=== PATIENT | female | born 1960 | race Caucasian/White ===

== ENCOUNTER 2021-09-17 14:48 | Observation (INO) | payer BC, SELFPAY ==
[2021-09-17] VITALS (29 sets, daily range): BP systolic 118–152; BP diastolic 70–92; PULSE 79–95; RESP 16–18; TEMP 36.7–37.2; O2SAT 94–100; BMI 21.2; BMI 19.8
--- NOTE | 2021-09-17 14:52 | ECG_ITS ---
APPROVED REPORT Exam: Resting ECG HR:96 bpm ECG Measurements Heart Rate 96 AXES SC 146 P 75 QRSd 100 QRS 15 QT 442 T 71 QTc 558 Conclusion Sinus rhythm with premature atrial complexes Nonspecific T wave abnormality Prolonged QT Abnormal ECG Electronically signed by : Alfonso Fortune MD 09/18/2021 21:05:51
--- NOTE | 2021-09-17 14:58 | HMH.EDGENADL ---
ED Disposition Clinical Impression: Elevated troponin, Mass of right lung, Colonic mass, Hypokalemia, Liver masses, Adenopathy Anemia Qualifiers: Anemia type: unspecified type Qualified Code(s): D64.9 - Anemia, unspecified Chest pain Qualifiers: Chest pain type: precordial pain Qualified Code(s): R07.2 - Precordial pain Breast mass, right Qualifiers: Breast mass location: unspecified quadrant Qualified Code(s): N63.10 - Unspecified lump in the right breast, unspecified quadrant Disposition: Admitted As Inpatient Condition on Discharge: Serious Referrals: Andrew Augustine [Primary Care Provider] - - Critical Care Critical Care Time: No Attestation: On , the high probability of a clinically significant, sudden or life threatening deterioration of the following system(s) required my full and direct attention, intervention and personal management. The time I documented below is in addition to time spent performing reported procedures but includes the following listed in this critical care notation. Medical Decision Making - Jonathan Inquiry Pt receiving controlled substance: No Vital Signs: 09/17/21 15:01 Temperature 98.5 F Temperature Source Oral Pulse Rate [Left Radial] 95 H Respiratory Rate 16 Blood Pressure [Right Arm] 152/88 H Blood Pressure Mean [Right Arm] 109 02 Sat by Pulse Oximetry 100 Oxygen Delivery Method Room Air - Lab Data Lab Results 09/17/21 15:22: WBC 12.3 H, RBC 3.63 L, Hgb 7.5 L, Hct 26.4 L, MCV 72.6 L, MCH 20.6 L, MCHC 28.3 L, RDW 17.2, Plt Count 803 H, MPV 8.3, Neut % (Auto) 85.1 H, Lymph % (Auto) 9.7 L, Robertson % (Auto) 3.9, Eos % (Auto) 0.2, Baso % (Auto) 1.1, Neut # (Auto) 10.5 H, Lymph # (Auto) 1.2, Robertson # (Auto) 0.5, Eos # (Auto) 0.0, Baso # (Auto) 0.1, Total Counted 100, Neutrophils % (Manual) 92 H, Lymphocytes % (Manual) 7 L, Monocytes % (Manual) 1 L, Platelet Estimate Marked increase, Hypochromasia 3+, Anisocytosis 2+, Microcytosis 1+ 09/17/21 15:22: Troponin I 0.96 H 09/17/21 15:22: Lipase 132 09/17/21 15:22: Sodium 137, Potassium 2.9 L*, Chloride 101, Carbon Dioxide 29, Anion Gap 9.9, BUN 10, Creatinine 0.80, Estimated Creat Clear 51, Estimated GFR 73, Est GFR ( Amer) 88, Glucose 153 H, Calcium 9.1, Total Bilirubin 0.2, AST 37 H, ALT 17, Alkaline Phosphatase 138 H, Total Protein 6.9, Albumin 3.7, Globulin 3.2, Albumin/Globulin Ratio 1.2 09/17/21 15:28: Urine Color Yellow, Urine Appearance Clear, Urine pH 6.0, Ur Specific [place] 1.015, Urine Protein Negative, Urine Glucose (UA) Negative, Urine Ketones Negative, Urine Blood Negative, Urine Nitrate Negative, Urine Bilirubin Negative, Urine Urobilinogen 0.2, Ur Leukocyte Esterase Trace, Urine RBC 3-5, Urine WBC Occasional, Ur Squamous Epith Cells 3-5, Urine Bacteria None 09/17/21 16:10: Stool Occult Blood Negative 09/17/21 16:15: Crossmatch (AHG) See Detail Result diagrams: 09/17/21 15:22 09/17/21 15:22 Orders (Tests/Meds): ED MEDICATIONS Generic Name Dose Route Start Last Admin Trade Name Freq PRN Reason Stop Dose Admin Sodium Chloride 250 mls @ 25 mls/hr 09/17/21 16:15 Sod Chlor 0.9% 250ml Bag IV 09/18/21 16:14 .Q10H CORNELIUS Discontinued Medications Generic Name Dose Route Start Last Admin Trade Name Freq PRN Reason Stop Dose Admin Aspirin 324 mg 09/17/21 16:01 Aspirin 81mg Chewable Tablet PO 09/17/21 16:02 ONCE ONE Iopamidol 70 ml 09/17/21 16:05 09/17/21 16:06 Iopamidol-370 (76%);100ml Bottle IV 09/17/21 16:06 70 ml ONCE ONE Administration Potassium Chloride 60 meq 09/17/21 15:44 09/17/21 16:03 Potassium Chloride 20meq Tab PO 09/17/21 15:45 60 meq ONCE ONE Administration Sodium Chloride 50 ml 09/17/21 16:05 09/17/21 16:06 0.9 % Sodium Chloride 50 Ml Vial IV 09/17/21 16:06 50 ml ONCE ONE Administration Sodium Chloride 10 ml 09/17/21 16:05 09/17/21 16:06 Sodium Chloride 0.9% 10ml Syr (Rad Only) IV 09/17/21 16:06 10 ml ONCE ONE Administration
--- NOTE | 2021-09-17 15:10 | CT_ITS ---
PROCEDURE INFORMATION: Exam: CT Abdomen And Pelvis Without Contrast Exam date and time: 09/17/2021 3:10 PM Age: 61 years old Clinical indication: Abdominal pain; Flank; Right; Additional info: Right flank pain TECHNIQUE: Imaging protocol: Computed tomography of the abdomen and pelvis without contrast. Radiation optimization: All CT scans at this facility use at least one of these dose optimization techniques: automated exposure control; mA and/or kV adjustment per patient size (includes targeted exams where dose is matched to clinical indication); or iterative reconstruction. COMPARISON: CR XR CHEST 2V 09/17/2021 3:12 PM FINDINGS: Lungs: 4.7 mm pulmonary nodule in the right lower lobe. Bibasilar atelectasis Liver: Normal. No mass. Gallbladder and bile ducts: Normal. No calcified stones. No ductal dilation. Pancreas: Normal. No ductal dilation. Spleen: Normal. No splenomegaly. Adrenal glands: Normal. No mass. Kidneys and ureters: 6.9 millimeter distal RIGHT ureteral calculus causes moderate dilatation of the RIGHT ureter, and RIGHT collecting system.. There may be 2 adjacent renal calculi together measuring 9.6 mm. The smaller distal calculus measures 3.7 mm The RIGHT kidney is edematous and there is RIGHT perirenal stranding. Stomach and bowel: Bowel wall thickening in the right colon with possible mass in the right colon. Series 6, image 52. There are surrounding inflammatory changes rule out malignancy.. Appendix: No evidence of appendicitis. Intraperitoneal space: 4.5 x 4.1 cm mass seen on chest CT is not visualized in the lung prakash on the abdomen and pelvis. Recommend chest CT for further evaluation. Vasculature: Unremarkable. No abdominal aortic aneurysm. Lymph nodes: Unremarkable. No enlarged lymph nodes. Urinary bladder: Unremarkable as visualized. Reproductive: Unremarkable as visualized. Bones/joints: Unremarkable. No acute fracture. Soft tissues: Unremarkable. IMPRESSION: 1. 4.5 x 4.1 cm mass seen on chest CT is not visualized in the lung prakash on the abdomen and pelvis. Recommend chest CT for further evaluation. 2. 4.7 mm pulmonary nodule in the right lower lobe.For patients at low risk (minimal or absent history of smoking and of other known risk factors), no routine follow-up is indicated. For patients at high risk (history of smoking or of other known risk factors), consider optional CT Chest at 12 months. (Reference: [place]) References: yasmine Tinajero al. Guidelines for Management of Incidental Pulmonary Nodules Detected on CT Images: From the Fleischner Society 2017. Radiology. 2017;284(1):228-243. 3. Bowel wall thickening in the right colon with possible mass in the right colon. Series 6, image 52. There are surrounding inflammatory changes rule out malignancy.. 4. 6.9 millimeter distal RIGHT ureteral calculus causes moderate dilatation of the RIGHT ureter, and RIGHT collecting system.. There may be 2 adjacent renal calculi together measuring 9.6 mm. The smaller distal calculus measures 3.7 mm The RIGHT kidney is edematous and there is RIGHT perirenal stranding.
--- NOTE | 2021-09-17 15:10 | XR_ITS ---
PROCEDURE INFORMATION: Exam: XR Chest Exam date and time: 09/17/2021 3:10 PM Age: 61 years old Clinical indication: Other: Chest pain with panic attack TECHNIQUE: Imaging protocol: XR of the chest. Views: 2 views. COMPARISON: No relevant prior studies available. FINDINGS: Lungs: 4.6 x 4.1 cm mass in the right lower lobe worrisome for malignancy. Differential includes round pneumonia Recommend chest CT for further evaluation. Pleural spaces: Unremarkable. No pleural effusion. No pneumothorax. Heart/Mediastinum: Unremarkable. No cardiomegaly. Bones/joints: Unremarkable. IMPRESSION: 4.6 x 4.1 cm mass in the right lower lobe worrisome for malignancy. Differential includes round pneumonia Recommend chest CT for further evaluation.
[2021-09-17 15:34] LABS: Microscopic, Urine URINE MICROSCOPIC (MICROSCOPIC)
[2021-09-17 15:37] LABS: Sodium 137 mmol/L (136-145)
[2021-09-17 15:38] LABS: Appearance,Urine CLEAR (Clear); Bilirubin,Urine Negative (Negative); Blood, Urine Negative (Negative); Color,Urine YELLOW (Yellow); Glucose,Urine (UA) Negative (Negative); Ketones,Urine Negative (Negative); Leukocyte Esterase,Urine TRACE (Negative); Nitrate,Urine Negative (Negative); Protein,Urine Negative (Negative); Specific Gravity, Urine 1.015 (1.005-1.030); Urobilinogen,Urine 0.2 EU/dl (0.2)
[2021-09-17 15:39] LABS: Blood Urea Nitrogen 10 mg/dl (7-17); Creatinine Clearance Estimated 51 mL/min (50-200); Estimated Glomerular Filt Rate 73 ml/min (>60); GFR (African American) 88 ML/MIN (>60)
[2021-09-17 15:40] LABS: Alanine Aminotransferase 17 U/L (12-78); Albumin Level 3.7 g/dl (3.5-5.0); Albumin/Globulin Ratio 1.2 (1.1-1.8); Alkaline Phosphatase 138 U/L (38-126); Aspartate Amino Transferase 37 U/L (14-36); Bilirubin,Total 0.2 mg/dl (0.2-1.3); Calcium 9.1 mg/dl (8.4-10.2); Carbon Dioxide 29 mmol/L (22.0-30.0); Globulin 3.2 g/dL (1.3-3.2); Glucose 153 mg/dl (74-100); Lipase 132 U/L (23-300); Potassium 2.9 mmoL/L (3.5-5.1); Total Protein,Serum 6.9 g/dl (6.3-8.2)
--- NOTE | 2021-09-17 15:40 | PC.NURSE ---
critical k+ of 2.9. dr olmedo informed
--- NOTE | 2021-09-17 15:42 | CT_ITS ---
PROCEDURE INFORMATION: Exam: CTA Chest With Contrast Exam date and time: 09/17/2021 3:42 PM Age: 61 years old Clinical indication: Mass, lump, or swelling in the chest; Additional info: Mass on cxr, chest pain TECHNIQUE: Imaging protocol: Computed tomographic angiography of the chest with contrast. 3D rendering (Not supervised by radiologist): MIP and/or 3D reconstructed images were created by the technologist. Radiation optimization: All CT scans at this facility use at least one of these dose optimization techniques: automated exposure control; mA and/or kV adjustment per patient size (includes targeted exams where dose is matched to clinical indication); or iterative reconstruction. Contrast material: ISOVUE; Contrast volume: 70 ml; Contrast route: INTRAVENOUS (IV); COMPARISON: CR XR CHEST 2V 09/17/2021 3:12 PM FINDINGS: Pulmonary arteries: Normal. No pulmonary emboli. Aorta: Unremarkable. No aortic aneurysm. No aortic dissection. Lungs: 4.6 by 3 cm mass in the superior segment of the right lower lobe. . This is not around pneumonia. Rule out malignancy.. 4.4 mm pulmonary nodule in the right upper lobe 4.7 mm pulmonary nodule in the right middle lobe 4 mm pulmonary nodule in the right lower lobe. Pleural spaces: Unremarkable. No pneumothorax. No pleural effusion. Heart: Unremarkable. No cardiomegaly. No pericardial effusion. Lymph nodes: 19 mm left para-aortic adenopathy. 3.2 x 2.4 cm left para-aortic adenopathy. 14 mm retrocrural node. Liver: 2 hypodense masses in the left lobe of the liver 19 mm may represent metastatic disease. 16 mm and 14 mm. Bones/joints: Unremarkable. No acute fracture. Soft tissues: 18 mm spiculated mass in the right breast. Series 5, image 67. Rule out malignancy.. IMPRESSION: 1. 4.6 by 3 cm mass in the superior segment of the right lower lobe. This is not pneumonia Rule out malignancy.. 2. 18 mm spiculated mass in the right breast. Series 5, image 67. Rule out malignancy.. 3. 4.4 mm pulmonary nodule in the right upper lobe 4.7 mm pulmonary nodule in the right middle lobe 4 mm pulmonary nodule in the right lower lobe. Findings consistent with metastatic disease 4. 2 hypodense masses in the left lobe of the liver 19 mm may represent metastatic disease. 16 mm and 14 mm. 5. 19 mm left para-aortic adenopathy. 3.2 x 2.4 cm left para-aortic adenopathy. 14 mm retrocrural node.
[2021-09-17 15:46] LABS: Basophils # 0.1 K/mm3 (0-0.2); Basophils % 1.1 % (0.1-2.0); Eosinophils % 0.2 % (0.1-12.0); Hematocrit 26.4 % (37.0-47.0); Hemoglobin 7.5 g/dL (12.2-16.2); Lymphocytes # 1.2 K/mm3 (0.7-4.5); Lymphocytes % 9.7 % (10-50); Mean Corpuscular HGB Conc 28.3 g/dL (31.8-35.4); Mean Corpuscular Hemoglobin 20.6 pg (27.0-31.2); Mean Corpuscular Volume 72.6 fl (81-99); Mean Platelet Volume 8.3 fl (7.4-10.4); Monocytes # 0.5 K/mm3 (0.1-1.0); Monocytes % 3.9 % (1.7-9.3); Neutrophils # 10.5 K/mm3 (1.8-7.8); Neutrophils % 85.1 % (37.0-80.0); Platelet Count 803 K/mm3 (142-424); Red Blood Count 3.63 M/mm3 (4.20-5.40); Red Cell Distribution Width 17.2 % (11.5-17.5); White Blood Count 12.3 K/mm3 (4.8-10.8)
[2021-09-17 15:53] LABS: MANUAL DIFFERENTIAL MANUAL DIFFERENTIAL (MANUAL DIFF)
[2021-09-17 15:54] LABS: Troponin I 0.96 ng/ml (0.00-0.034)
--- NOTE | 2021-09-17 15:58 | PC.NURSE ---
aware of critical trop
[2021-09-17 16:24] LABS: WBC,Urine Occasional #/hpf (0-3)
[2021-09-17 16:34] LABS: Occult Blood,Stool Negative (Negative)
[2021-09-17 16:36] LABS: Anion Gap 9.9 mEq/L (5-15); Chloride 101 mmol/L (98-107)
[2021-09-17 16:55] LABS: Lymphocytes % 7 % (10-50); Monocytes % 1 % (2-9); Neutrophils % 92 % (42-76); Total Cells Counted 100
[2021-09-17 16:56] LABS: Anisocytosis 2+; Microcytosis 1+; Platelet Estimate Marked Increase
[2021-09-17 16:57] LABS: Hypochromasia 3+
[2021-09-17 17:28] LABS: Coronavirus 19, PCR Not Detected (NotDetected); Influenza A, PCR Not Detected (NotDetected); Influenza B, PCR Not Detected (NotDetected)
[2021-09-17 19:05] LABS: Troponin I 1.02 ng/ml (0.00-0.034)
--- NOTE | 2021-09-17 19:07 | PC.NURSE ---
notified provider of critical troponin of 1.02. MD Claire
--- NOTE | 2021-09-17 21:04 | PC.NURSE ---
LATE ENTRY: REPORT RECEIVED FROM ANIL RN AT 2024
[2021-09-17 21:44] LABS: Troponin I 1.08 ng/ml (0.00-0.034)
--- NOTE | 2021-09-17 21:46 | PC.NURSE ---
DR KEYS NOTIFIED OF CRITICAL TROPONIN OF 1.08, NO NEW ORDERS
--- NOTE | 2021-09-17 21:47 | PC.NURSE ---
LATE ENTRY: 0945 NOTIFIED OF CRITICAL TROPONIN 1.08 FROM SINDY IN LAB. VERIFIED PT NAME AND .
--- NOTE | 2021-09-17 22:27 | PC.NURSE ---
PT RATES HER BACK PAIN 5-6/10. UNCOMFORTABLE. DR KEYS NOTIFIED VIA HARISH MCCAIN MD TO RETURN CALL
[2021-09-18] VITALS: PULSE 90
[2021-09-18 00:11] VITALS: BP 132/71; PULSE 85; RESP 18; TEMP 36.9; O2SAT 98
[2021-09-18 02:13] LABS: Hematocrit 31.3 % (37.0-47.0); Hemoglobin 9.5 g/dL (12.2-16.2)
[2021-09-18 04:00] VITALS: BP 125/74; PULSE 84; PULSE 90; RESP 18; TEMP 36.9; O2SAT 99
[2021-09-18 06:12] LABS: Basophils % 0.1 % (0.1-2.0); Eosinophils # 0.1 K/mm3 (0.0-0.4); Eosinophils % 0.6 % (0.1-12.0); Hematocrit 30.5 % (37.0-47.0); Hemoglobin 9.5 g/dL (12.2-16.2); Lymphocytes # 1.4 K/mm3 (0.7-4.5); Lymphocytes % 9.7 % (10-50); Mean Corpuscular HGB Conc 31.1 g/dL (31.8-35.4); Mean Corpuscular Hemoglobin 23.2 pg (27.0-31.2); Mean Corpuscular Volume 74.5 fl (81-99); Mean Platelet Volume 8.3 fl (7.4-10.4); Monocytes # 0.9 K/mm3 (0.1-1.0); Monocytes % 5.8 % (1.7-9.3); Neutrophils # 12.4 K/mm3 (1.8-7.8); Neutrophils % 83.7 % (37.0-80.0); Platelet Count 584 K/mm3 (142-424); Red Blood Count 4.09 M/mm3 (4.20-5.40); Red Cell Distribution Width 17.4 % (11.5-17.5); White Blood Count 14.8 K/mm3 (4.8-10.8)
[2021-09-18 06:20] LABS: Chloride 104 mmol/L (98-107); Sodium 137 mmol/L (136-145)
[2021-09-18 06:21] LABS: Potassium 3.8 mmoL/L (3.5-5.1)
[2021-09-18 06:23] LABS: Blood Urea Nitrogen 9 mg/dl (7-17); Creatinine Clearance Estimated 47 mL/min (50-200); Estimated Glomerular Filt Rate 73 ml/min (>60); GFR (African American) 88 ML/MIN (>60)
[2021-09-18 06:24] LABS: Anion Gap 9.8 mEq/L (5-15); Calcium 8.5 mg/dl (8.4-10.2); Carbon Dioxide 27 mmol/L (22.0-30.0); Glucose 133 mg/dl (74-100)
--- NOTE | 2021-09-18 06:33 | PC.NURSE ---
LATE ENTRY: 0400: PT HAS RESTED WELL THIS SHIFT, WARM BLANKETS AND PILLOW PLACED BEHIND BACK HELPED RELIEVE BACK PAIN. VS REMAIN STABLE. NO ACUTE CHANGES FROM PREVIOUS ASSESSMENT. WILL CONTINUE TO MONITOR.
--- NOTE | 2021-09-18 07:22 | P.CONPHA_ITS ---
[facility] Pharmacy VTE Monitoring - Patient Demographics Admission date: 09/17/21 Report Date: 09/18/21 Time: 07:22 Allergies/Adverse Reactions: Patient Allergies No Known Allergies Allergy (Verified 09/17/21 14:59) Height: 1.6 m Weight: 50.831 kg Patient Problems: Current Active Problems Anemia (Acute) Elevated troponin (Acute) Chest pain (Acute) Mass of right lung (Acute) Breast mass, right (Acute) Colonic mass (Acute) Hypokalemia (Acute) Liver masses (Acute) Adenopathy (Acute) - VTE Risk Labs: VTE Related Lab Results Hgb 9.5 g/dL (12.2-16.2) L 09/18/21 05:51 Hct 30.5 % (37.0-47.0) L 09/18/21 05:51 Plt Count 584 K/mm3 (142-424) H D 09/18/21 05:51 BUN 9 mg/dl (7-17) 09/18/21 05:51 Creatinine 0.80 mg/dl (0.52-1.04) 09/18/21 05:51 Estimated Creat Clear 47 mL/min (50-200) 09/18/21 05:51 VTE Score: 3 VTE Risk Level: Low Risk - Prophylaxis VTE Prophylaxis Ordered?: Yes Types of VTE Prophylaxis: TEDS Knee High Location of Applied Device: Bilateral Lower Extremeties
--- NOTE | 2021-09-18 07:23 | HMH.PHAINT ---
MEDICATION RECONCILIATION COMPLETED ON PATIENT USING EXTERNAL FILL HISTORY FROM PHARMACY. -MICKIE KING, OSITOD
[2021-09-18 08:00] VITALS: BP 138/60; PULSE 91; PULSE 93; RESP 18; TEMP 37.1; O2SAT 96
--- NOTE | 2021-09-18 08:00 | CA_ITS ---
APPROVED REPORT EXAM: Comprehensive 2D, Doppler, and color-flow Echocardiogram Speed Belt Sander: Nenita Skinner, CECE, RVS Ht: 5 ft 3 in Wt: 112lbs BSA: 1.51 BP: 150/88 mmHg Indications: NSTEMI, Anemia, elevated troponin, smoker, multiple masses:Right lung, colon, breast,liver 2D Dimensions LVDd 5.89 cm LA Volume 57.00 mL Left Atrium 3.34 cm LA Volume Index 37.153051 mL/m2 (M/F) 16-34 LVOT 1.65 cm (M/F) 1.5-2.5 M-Mode Dimensions RVDd 1.42 cm (0.9-2.6) LA Diam 3.41 cm (1.9-4.0) LVDd 6.05 cm (3.5-5.7) Ao Diam 3.12 cm (2.0-3.7) LVDs 4.77 cm (3.5-5.7) IVSd 0.93 cm (0.6-1.1) PWd 0.96 cm (0.6-1.1) EF (Teich) 42.20% FS 21.20% EDV (Teich) 183.40 mL TAPSE 2.52 (<1.7) ESV (Teich) 106.00 mL LV Diastology E Decel Time 283.00 (160-240 msec) E/A Ratio 0.78 MED E' 5.30 (< 7 cm/sec) MED A' 10.50 cm/s E'/MED E' Ratio 14.49 (>14) LAT E' 5.60 (<10 cm/sec) LAT A' 12.50 cm/s E/LAT E' Ratio 13.71 (>14) Aortic Valve LVOT Max 113.00 (70-110 cm/s) LVOT VTI 22.42 cm AoV Peak Montez. 119.00 (50-130 cm/s) AO Peak GR. 5.80 mmHg AO Mean GR. 3.40 (<5 mmHg) AO VTI 23.66 (18-25 cm) MARCIAL (VTI) 2.03 (2.5-4.5 cm2) Mitral Valve MV A Velocity 99.00 (40-130 cm/s) E/A Ratio 0.78 MV Decel. Time 283.00 (160-240 ms) MV Mean Gr. 2.70 (<2mmHg) Pulmonary Valve PV Peak Velocity 82.00 (50-150 cm/s) Tricuspid Valve TR P. Velocity 298.00 cm/s RAP Estimate 10.00 mmHg RVSP 45.50 mmHg Left Ventricle Left atrium is mildly enlarged, left ventricle is mildly dilated, severe reduced left ventricular systolic function, visually estimated ejection fraction 20 to 25%, there is marked hypokinesis involving the mid to distal septum, anterior and anterior apical wall, repeat study with Definity contrast is recommended to exclude presence of left ventricular thrombus. Grade 1 diastolic dysfunction seen without tissue Doppler evidence of raise left atrial pressure. Right Ventricle Right atrium and right ventricle are mildly enlarged with normal contractility. Aortic Valve Aortic valve is minimally thickened and fibrosed, there is no aortic stenosis or aortic insufficiency. Mitral Valve Mitral valve is grossly normal, there is trace mitral regurgitation. Tricuspid Valve Tricuspid grossly normal, there is trace tricuspid regurgitation, calculated right ventricular systolic pressure is 46 mmHg. Pulmonic Valve Pulmonic valve is poorly visualized. Great Vessels Aortic root is normal size. Inferior vena cava is poorly visualized. Pericardium No significant pericardial effusion noted. Conclusion 1. Mildly enlarged left atrium, dilated left ventricle, severely reduced left ventricular systolic function, visually estimated ejection fraction 20 to 25%, with multiple segmental wall motion abnormality described above, grade 1 diastolic dysfunction seen without tissue Doppler evidence of raise left atrial pressure, repeat study with Definity contrast is recommended to exclude presence of left ventricular thrombus. 2. Mildly enlarged right ventricle with normal contractility. 3. Trace mitral and tricuspid regurgitation, calculated right ventricular systolic pressure is 46 mmHg. 4. There is no significant pericardial effusion noted. 5. Inferior vena cava is poorly visualized. Electronically signed by : Uvaldo Worley MD 09/18/2021 21:06:58
--- NOTE | 2021-09-18 11:03 | HMH.CNCARD ---
History of Present Illness Consult date: 09/18/21 Requesting physician: Ketan Rangel Chief complaint: Elevated troponins Additional Medical History:: 1. Tobacco use, 0.5 ppd for >30 yrs 2. GERD History of present illness: 61 yo WF with no significant medical history was admitted through the ER for anemia and newly discovered masses in lung, liver and colon with abnormality of right breast suspicious for malignancy. Workup included troponins which returned elevated. Cardiology consulted for further evaluation. Pt denies any prior cardiac history. Denies DM, HTN, HLD, ETOH use, Drug use or recent significant viral illness (slight cold symptoms 1-2 wks ago). Denies any exertional chest pain. Some fatigue and lack of energy in the last 2 wks. She was found to be anemic and was transfused 2 units of blood this admission. Echo performed with preliminary reading showing decreased LVEF of around 30%. Official report pending. [facility] History *Have you ever received a pneumonia vaccine?: No *Have you received a flu vaccine this season?: No - *Social History Smoking Status: Current every day smoker Tobacco Type: cigarettes # Packs/Day (cigarettes): 1 Alcohol Intake: never *Occupational Status:: other *Travel in the last 8 weeks: None Family Hx:: No significant family history Meds Home Medications Medication Instructions Recorded Confirmed Type Pantoprazole Sodium [Protonix 40mg 40 mg PO DAILY 09/17/21 09/17/21 History tablet] Allergies Allergy/AdvReac Type Severity Reaction Status Date / Time No Known Allergies Allergy Verified 09/17/21 14:59 Exam Vital signs and Labs for Last 24 Hours: Temp Pulse Resp BP Pulse Ox 98.8 F 91 H 18 138/60 96 09/18/21 08:00 09/18/21 08:00 09/18/21 08:00 09/18/21 08:00 09/18/21 08:00 Laboratory Results - last 24 hr 09/17/21 15:22: WBC 12.3 H, RBC 3.63 L, Hgb 7.5 L, Hct 26.4 L, MCV 72.6 L, MCH 20.6 L, MCHC 28.3 L, RDW 17.2, Plt Count 803 H, MPV 8.3, Neut % (Auto) 85.1 H, Lymph % (Auto) 9.7 L, [place] % (Auto) 3.9, Eos % (Auto) 0.2, Baso % (Auto) 1.1, Neut # (Auto) 10.5 H, Lymph # (Auto) 1.2, [place] # (Auto) 0.5, Eos # (Auto) 0.0, Baso # (Auto) 0.1, Total Counted 100, Neutrophils % (Manual) 92 H, Lymphocytes % (Manual) 7 L, Monocytes % (Manual) 1 L, Platelet Estimate Marked increase, Hypochromasia 3+, Anisocytosis 2+, Microcytosis 1+ 09/17/21 15:22: Troponin I 0.96 H 09/17/21 15:22: Lipase 132 09/17/21 15:22: Sodium 137, Potassium 2.9 L*, Chloride 101, Carbon Dioxide 29, Anion Gap 9.9, BUN 10, Creatinine 0.80, Estimated Creat Clear 51, Estimated GFR 73, Est GFR ( Amer) 88, Glucose 153 H, Calcium 9.1, Total Bilirubin 0.2, AST 37 H, ALT 17, Alkaline Phosphatase 138 H, Total Protein 6.9, Albumin 3.7, Globulin 3.2, Albumin/Globulin Ratio 1.2 09/17/21 15:28: Urine Color Yellow, Urine Appearance Clear, Urine pH 6.0, Ur Specific [place] 1.015, Urine Protein Negative, Urine Glucose (UA) Negative, Urine Ketones Negative, Urine Blood Negative, Urine Nitrate Negative, Urine Bilirubin Negative, Urine Urobilinogen 0.2, Ur Leukocyte Esterase Trace, Urine RBC 3-5, Urine WBC Occasional, Ur Squamous Epith Cells 3-5, Urine Bacteria None 09/17/21 16:10: Stool Occult Blood Negative 09/17/21 16:15: Blood Type A Positive, Antibody Screen Negative, Crossmatch (AHG) See Detail 09/17/21 16:15: Blood Type Confirm A Positive 09/17/21 17:02: SARS-CoV-2 (PCR) Not detected, Influenza A Untype (PCR) Not detected, Influenza Type B (PCR) Not detected 09/17/21 18:09: Troponin I 1.02 H 09/17/21 21:05: Troponin I 1.08 H 09/18/21 02:05: Hgb 9.5 L D, Hct 31.3 L 09/18/21 05:51: WBC 14.8 H, RBC 4.09 L, Hgb 9.5 L, Hct 30.5 L, MCV 74.5 L, MCH 23.2 L, MCHC 31.1 L, RDW 17.4, Plt Count 584 H D, MPV 8.3, Neut % (Auto) 83.7 H, Lymph % (Auto) 9.7 L, [place] % (Auto) 5.8, Eos % (Auto) 0.6, Baso % (Auto) 0.1, Neut # (Auto) 12.4 H, Lymph # (Auto) 1.4, [place] # (Auto) 0.9, Eos # (Auto) 0.1, Baso # (Auto) 0.0 09/18/21 05:
[2021-09-18 12:00] VITALS: BP 131/83; PULSE 80; PULSE 83; RESP 18; TEMP 36.7; O2SAT 98
--- NOTE | 2021-09-18 12:26 | HMH.GSCON ---
*Admission Date: 09/17/21 *Reason for consult:: Possible colon mass *History of present illness: Patient is a 61-year-old female who lives in [facility] who had presented yesterday with a couple of different complaints. She has had some pain in her right flank near the right iliac crest with radiation down to the pelvic area and inguinal area intermittently for several months. She has had some symptoms of dysuria. For couple of days she has been having symptoms described as intermittent burning sensation in her chest and shoulders with symptoms described as panic attacks . She had recently been seen in the hospital at [facility] and diagnosed with gastritis. She underwent extremely [facility] Imaging revealed a plethora of findings including large right chest/lung mass, a couple of liver masses, probable right colon mass, spiculated mass in the right breast, right kidney stone with hydroureter and perinephric stranding. She was found to be anemic with a hemoglobin of 7.5. She was transfused a couple units of packed red blood cells overnight. Surgical consultation was obtained for the right colon mass. Patient denies any change in her bowel habits. Denies rectal bleeding. She had a colonoscopy several decades ago. There is no family history of colon cancer. She has no family history of breast cancer. She has not had recent breast imaging. Review of Systems - Review of Systems Review of systems:: pertinent systems reviewed and negative unless documented below - *Neurologic Reports weakness [facility] History I have reviewed the patient's past medical history: Yes *Have you ever received a pneumonia vaccine?: No *Have you received a flu vaccine this season?: No - *Social History Smoking Status: Current every day smoker Tobacco Type: cigarettes # Packs/Day (cigarettes): 1 Alcohol Intake: never *Occupational Status:: other *Travel in the last 8 weeks: None Family Hx:: Non-contributory Meds Home Medications Medication Instructions Recorded Confirmed Type Pantoprazole Sodium [Protonix 40mg 40 mg PO DAILY 09/17/21 09/17/21 History tablet] Allergies Allergy/AdvReac Type Severity Reaction Status Date / Time No Known Allergies Allergy Verified 09/17/21 14:59 Exam Vital signs and Labs for Last 24 Hours: Temp Pulse Resp BP Pulse Ox 98.8 F 91 H 18 138/60 96 09/18/21 08:00 09/18/21 08:00 09/18/21 08:00 09/18/21 08:00 09/18/21 08:00 Laboratory Results - last 24 hr 09/17/21 15:22: WBC 12.3 H, RBC 3.63 L, Hgb 7.5 L, Hct 26.4 L, MCV 72.6 L, MCH 20.6 L, MCHC 28.3 L, RDW 17.2, Plt Count 803 H, MPV 8.3, Neut % (Auto) 85.1 H, Lymph % (Auto) 9.7 L, [place] % (Auto) 3.9, Eos % (Auto) 0.2, Baso % (Auto) 1.1, Neut # (Auto) 10.5 H, Lymph # (Auto) 1.2, [place] # (Auto) 0.5, Eos # (Auto) 0.0, Baso # (Auto) 0.1, Total Counted 100, Neutrophils % (Manual) 92 H, Lymphocytes % (Manual) 7 L, Monocytes % (Manual) 1 L, Platelet Estimate Marked increase, Hypochromasia 3+, Anisocytosis 2+, Microcytosis 1+ 09/17/21 15:22: Troponin I 0.96 H 09/17/21 15:22: Lipase 132 09/17/21 15:22: Sodium 137, Potassium 2.9 L*, Chloride 101, Carbon Dioxide 29, Anion Gap 9.9, BUN 10, Creatinine 0.80, Estimated Creat Clear 51, Estimated GFR 73, Est GFR ( Amer) 88, Glucose 153 H, Calcium 9.1, Total Bilirubin 0.2, AST 37 H, ALT 17, Alkaline Phosphatase 138 H, Total Protein 6.9, Albumin 3.7, Globulin 3.2, Albumin/Globulin Ratio 1.2 09/17/21 15:28: Urine Color Yellow, Urine Appearance Clear, Urine pH 6.0, Ur Specific [place] 1.015, Urine Protein Negative, Urine Glucose (UA) Negative, Urine Ketones Negative, Urine Blood Negative, Urine Nitrate Negative, Urine Bilirubin Negative, Urine Urobilinogen 0.2, Ur Leukocyte Esterase Trace, Urine RBC 3-5, Urine WBC Occasional, Ur Squamous Epith Cells 3-5, Urine Bacteria None 09/17/21 16:10: Stool Occult Blood Negative 09/17/21 16:15
--- NOTE | 2021-09-18 15:44 | HMH.PULMCON ---
*Admission Date: 09/17/21 *Reason for consult:: Lung mass *History of present illness: Ms. Maciel is a 61-year-old female current smoker around [id number] smoking history, smoking close to half pack a day, not undergoing age-appropriate screening including mammograms presented to the hospital nonspecific symptoms of chest pain and shoulder weakness and found to have concerning lesions in her colon, liver lung and breast and pulmonary was called for further management. [facility] History *Have you ever received a pneumonia vaccine?: No *Have you received a flu vaccine this season?: No - *Social History Smoking Status: Current every day smoker Tobacco Type: cigarettes # Packs/Day (cigarettes): 1 Alcohol Intake: never *Occupational Status:: other *Travel in the last 8 weeks: None Family Hx:: Non-contributory ROS - Cons Denies anorexia, Denies body ache(s), Denies chills - Card Reports chest pain, Reports shortness of breath with activity, Denies shortness of breath - Resp Respiratory: Denies shortness of breath, Denies chest congestion, Denies cough, Reports dyspnea on exertion, Denies excessive phlegm production - GI Gastrointestingal: Denies: abdominal pain Meds Home Medications Medication Instructions Recorded Confirmed Type Pantoprazole Sodium [Protonix 40mg 40 mg PO DAILY 09/17/21 09/17/21 History tablet] Allergies Allergy/AdvReac Type Severity Reaction Status Date / Time No Known Allergies Allergy Verified 09/17/21 14:59 Exam - Constitutional Constitutional:: Present: no acute distress, comfortable - HENMT Exam HENMT: Present: normocephalic, atraumatic - Eye Exam Eyes:: Present: normal appearance both eyes and related structures - Neck Exam Neck:: Present: normal visual inspection - Respiratory Exam Respiratory:: Present: able to speak in complete sentences, lungs clear, no respiratory distress - Cardiovascular Exam Cardiac:: Present: S1, S2 - GI Exam GI:: Present: soft, no tenderness - Skin Exam Skin: Present: warm - Neurological Exam Neurological: Present: alert, awake, normal cognition - Extremities Exam Extremities: Present: no cyanosis, no clubbing - Psychiatric Exam Psychiatric: Present: anxious Internal Medicine - CN: Reslt - Labs CBC & Chem 7: 09/18/21 05:51 09/18/21 05:51 Labs: Short CBC 09/17/21 09/18/21 09/18/21 Range/Units 15:22 02:05 05:51 WBC 12.3 H 14.8 H (4.8-10.8) K/mm3 Hgb 7.5 L 9.5 L D 9.5 L (12.2-16.2) g/dL Hct 26.4 L 31.3 L 30.5 L (37.0-47.0) % Plt Count 803 H 584 H D (142-424) K/mm3 BMP 09/17/21 09/18/21 15:22 05:51 Sodium 137 Potassium 3.8 D Chloride 101 104 Carbon Dioxide 27 BUN 9 Creatinine 0.80 Glucose 133 H Calcium 8.5 Cardiac Enzymes 09/17/21 09/17/21 09/17/21 Range/Units 15:22 18:09 21:05 Troponin I 0.96 H 1.02 H 1.08 H (0.00-0.034) ng/ml Assessment and Plan (1) Cardiomyopathy Status: Acute Category: Medical Code(s): I42.9 - Cardiomyopathy, unspecified (2) Anemia Status: Acute Qualifiers: Anemia type: unspecified type Qualified Code(s): D64.9 - Anemia, unspecified Category: Medical Code(s): D64.9 - Anemia, unspecified (3) Breast mass, right Status: Acute Qualifiers: Breast mass location: unspecified quadrant Qualified Code(s): N63.10 - Unspecified lump in the right breast, unspecified quadrant Category: Medical Code(s): N63.10 - Unspecified lump in the right breast, unspecified quadrant (4) Colonic mass Status: Acute Category: Medical Code(s): K63.89 - Other specified diseases of intestine (5) Elevated troponin Status: Acute Category: Medical Code(s): R77.8 - Other specified abnormalities of plasma proteins (6) Mass of right lung Status: Acute Category: Medical Code(s): R91.8 - Other nonspecific abnormal finding of lung field - Assessment and plan all Dx Assessment and Plan fo
[2021-09-18 16:00] VITALS: BP 130/79; PULSE 79; PULSE 80; RESP 17; TEMP 36.9; O2SAT 97
--- NOTE | 2021-09-18 16:00 | PC.NURSE ---
Late entry: Routine reassessment completed. VSS No acute changes noted from previous assessment. Pt. denies pain, reports she would like to go home, nurse informed pt. of awaiting MD order for discharge. pt. v/u. Pt. has rested well today. Pt. denies further needs, call light within reach, will continue to monitor.
--- NOTE | 2021-09-18 16:27 | HMH.CONS ---
*Admission Date: 09/17/21 *Reason for consult:: Right ureteral calculus *History of present illness: Patient is a 61-year-old white female who presented to the hospital on September 17 with right lower quadrant pain. She states that this pain had been ongoing for a couple of months but was intermittent. She denies any hematuria, fevers or chills. CT scan shows a 6.9 mm distal right ureteral calculus causing moderate dilation of the right ureter and right kidney. Patient also had other findings on her CT including a 4 x 4 centimeter mass in the long and bowel thickening in the right colon with possible mass. Patient has seen general surgery, pulmonology and cardiology while here. Colonoscopy as well as lung biopsy have been recommended however patient was to go home right now process of the information. We discussed the ureteral stone and she is currently asymptomatic. Her white count is normal and her kidney function is normal. [place] History Medical History: Reports:: Anxiety, Gastroesophageal Reflux Disease(GERD) *Have you ever received a pneumonia vaccine?: No *Have you received a flu vaccine this season?: No - *Social History Smoking Status: Current every day smoker Tobacco Type: cigarettes # Packs/Day (cigarettes): 1 Alcohol Intake: never *Occupational Status:: other *Travel in the last 8 weeks: None Family Hx:: Non-contributory Review of Systems - Review of Systems Review of systems:: pertinent systems reviewed and negative unless documented below - *Neurologic Reports weakness Meds Home Medications Medication Instructions Recorded Confirmed Type Pantoprazole Sodium [Protonix 40mg 40 mg PO DAILY 09/17/21 09/17/21 History tablet] Allergies Allergy/AdvReac Type Severity Reaction Status Date / Time No Known Allergies Allergy Verified 09/17/21 14:59 Exam Vital signs and Labs for Last 24 Hours: Temp Pulse Resp BP Pulse Ox 98.4 F 79 17 130/79 97 09/18/21 16:00 09/18/21 16:00 09/18/21 16:00 09/18/21 16:00 09/18/21 16:00 Laboratory Results - last 24 hr 09/17/21 15:22: Total Counted 100, Neutrophils % (Manual) 92 H, Lymphocytes % (Manual) 7 L, Monocytes % (Manual) 1 L, Platelet Estimate Marked increase, Hypochromasia 3+, Anisocytosis 2+, Microcytosis 1+ 09/17/21 15:22: Chloride 101, Anion Gap 9.9 09/17/21 16:10: Stool Occult Blood Negative 09/17/21 16:15: Blood Type A Positive, Antibody Screen Negative, Crossmatch (AHG) See Detail 09/17/21 16:15: Blood Type Confirm A Positive 09/17/21 17:02: SARS-CoV-2 (PCR) Not detected, Influenza A Untype (PCR) Not detected, Influenza Type B (PCR) Not detected 09/17/21 18:09: Troponin I 1.02 H 09/17/21 21:05: Troponin I 1.08 H 09/18/21 02:05: Hgb 9.5 L D, Hct 31.3 L 09/18/21 05:51: WBC 14.8 H, RBC 4.09 L, Hgb 9.5 L, Hct 30.5 L, MCV 74.5 L, MCH 23.2 L, MCHC 31.1 L, RDW 17.4, Plt Count 584 H D, MPV 8.3, Neut % (Auto) 83.7 H, Lymph % (Auto) 9.7 L, [place] % (Auto) 5.8, Eos % (Auto) 0.6, Baso % (Auto) 0.1, Neut # (Auto) 12.4 H, Lymph # (Auto) 1.4, [place] # (Auto) 0.9, Eos # (Auto) 0.1, Baso # (Auto) 0.0 09/18/21 05:51: Sodium 137, Potassium 3.8 D, Chloride 104, Carbon Dioxide 27, Anion Gap 9.8, BUN 9, Creatinine 0.80, Estimated Creat Clear 47, Estimated GFR 73, Est GFR ( Amer) 88, Glucose 133 H, Calcium 8.5 I & O for Last 24 hours: Intake & Output 09/15/21 09/16/21 09/17/21 09/18/21 23:59 23:59 23:59 23:59 Intake Total 0 / 0 0 / 0 Balance 0 / 0 0 / 0 Weight 50.831 kg - Constitutional no acute distress - *Routine HEENT Exam Head: Present: normocephalic Eye: Present: EOMI, PERRL ENT: Present: mucous membranes moist - *Routine Neck Exam Present: supple. Absent: lymphadenopathy - *Routine Respiratory Exam Absent: accessory muscle use - *Routine Cardiovascular Exam Absent: JVD - *Routine Abdominal Exam Present: soft. Absent: tenderness - *Routine Extremities Exam Absent: cyanosis, clubbing, edema - *Routine Skin Exam
--- NOTE | 2021-09-18 17:05 | HMH.HP ---
*Admission Date: 09/17/21 *Chief complaint: chest pain *History of present illness: 61 yo WF with no significant medical history was admitted through the ER for anemia and newly discovered masses in lung, liver and colon with abnormality of right breast suspicious for malignancy. Workup included troponins which returned elevated. Cardiology consulted for further evaluation. Pt denies any prior cardiac history. Denies DM, HTN, HLD, ETOH use, Drug use or recent significant viral illness (slight cold symptoms 1-2 wks ago). Denies any exertional chest pain. Some fatigue and lack of energy in the last 2 wks. She was found to be anemic and was transfused 2 units of blood this admission. Echo performed with preliminary reading showing decreased LVEF of around 30%. Official report pending. [facility] History I have reviewed the patient's past medical history: Yes Medical History: Reports:: Anxiety, Gastroesophageal Reflux Disease(GERD) *Have you ever received a pneumonia vaccine?: No *Have you received a flu vaccine this season?: No - *Social History Smoking Status: Current every day smoker Tobacco Type: cigarettes # Packs/Day (cigarettes): 1 Alcohol Intake: never *Occupational Status:: other *Travel in the last 8 weeks: None - Psychiatric History Pschychiatric History:: Reports:: Anxiety Family Hx:: Non-contributory Review of Systems - Review of Systems Review of systems:: pertinent systems reviewed and negative unless documented below - Constitutional Reports fatigue, Denies body ache(s) - Eyes Denies blurry vision - ENT Denies bleeding gums - *Cardiovascular Reports chest pain, Reports chest pain at rest - *Respiratory Denies chest congestion - *Gastrointestinal Denies bloating - *Genitourinary Denies abnormal periods - *Musculoskeletal Denies joint pain - Integumentary/Breasts Denies rash - *Neurologic Reports weakness, Denies headache(s) - Psychiatric Reports anxiety - Endocrine Denies flushing - Hematologic/Lymphatic Denies enlarged lymph nodes - Allergic/Immunologic Denies itchy eyes Meds Home Medications Medication Instructions Recorded Confirmed Type Pantoprazole Sodium [Protonix 40mg 40 mg PO DAILY 09/17/21 09/17/21 History tablet] Allergies Allergy/AdvReac Type Severity Reaction Status Date / Time No Known Allergies Allergy Verified 09/17/21 14:59 Exam Vital signs and Labs for Last 24 Hours: Temp Pulse Resp BP Pulse Ox 98.4 F 79 17 130/79 97 09/18/21 16:00 09/18/21 16:00 09/18/21 16:00 09/18/21 16:00 09/18/21 16:00 Laboratory Results - last 24 hr 09/17/21 16:15: Blood Type A Positive, Antibody Screen Negative, Crossmatch (AHG) See Detail 09/17/21 16:15: Blood Type Confirm A Positive 09/17/21 17:02: SARS-CoV-2 (PCR) Not detected, Influenza A Untype (PCR) Not detected, Influenza Type B (PCR) Not detected 09/17/21 18:09: Troponin I 1.02 H 09/17/21 21:05: Troponin I 1.08 H 09/18/21 02:05: Hgb 9.5 L D, Hct 31.3 L 09/18/21 05:51: WBC 14.8 H, RBC 4.09 L, Hgb 9.5 L, Hct 30.5 L, MCV 74.5 L, MCH 23.2 L, MCHC 31.1 L, RDW 17.4, Plt Count 584 H D, MPV 8.3, Neut % (Auto) 83.7 H, Lymph % (Auto) 9.7 L, [place] % (Auto) 5.8, Eos % (Auto) 0.6, Baso % (Auto) 0.1, Neut # (Auto) 12.4 H, Lymph # (Auto) 1.4, [place] # (Auto) 0.9, Eos # (Auto) 0.1, Baso # (Auto) 0.0 09/18/21 05:51: Sodium 137, Potassium 3.8 D, Chloride 104, Carbon Dioxide 27, Anion Gap 9.8, BUN 9, Creatinine 0.80, Estimated Creat Clear 47, Estimated GFR 73, Est GFR ( Amer) 88, Glucose 133 H, Calcium 8.5 I & O for Last 24 hours: Intake & Output 09/16/21 09/17/21 09/18/21 09/19/21 11:59 11:59 11:59 11:59 Intake Total 0 / 0 Balance 0 / 0 Weight 112 lb 1 oz - Constitutional no acute distress Assessment and Plan (1) Cardiomyopathy Status: Acute Category: Medical Code(s): I42.9 - Cardiomyopathy, unspecified (2) Anemia Status: Acute Qualifiers: An
--- NOTE | 2021-09-18 17:12 | HMH.HPDC ---
General - General Admission date:: 09/17/21 Discharge date: 09/18/21 *Admission Date: 09/17/21 *Chief complaint: chest pain *History of present illness: 61 yo WF with no significant medical history was admitted through the ER for anemia and newly discovered masses in lung, liver and colon with abnormality of right breast suspicious for malignancy. Workup included troponins which returned elevated. Cardiology consulted for further evaluation. Pt denies any prior cardiac history. Denies DM, HTN, HLD, ETOH use, Drug use or recent significant viral illness (slight cold symptoms 1-2 wks ago). Denies any exertional chest pain. Some fatigue and lack of energy in the last 2 wks. She was found to be anemic and was transfused 2 units of blood this admission. Echo performed with preliminary reading showing decreased LVEF of around 30%. Official report pending. [facility] History I have reviewed the patient's past medical history: Yes Medical History: Reports:: Anxiety, Gastroesophageal Reflux Disease(GERD) *Have you ever received a pneumonia vaccine?: No *Have you received a flu vaccine this season?: No - *Social History Smoking Status: Current every day smoker Tobacco Type: cigarettes # Packs/Day (cigarettes): 1 Alcohol Intake: never *Occupational Status:: other *Travel in the last 8 weeks: None - Psychiatric History Pschychiatric History:: Reports:: Anxiety Family Hx:: Non-contributory Review of Systems - Review of Systems Review of systems:: pertinent systems reviewed and negative unless documented below - Constitutional Reports fatigue, Denies daytime sleepiness - Eyes Denies double vision - ENT Denies abnormal hearing - *Cardiovascular Reports chest pain, Reports chest pain at rest, Reports chest pain with activity - *Respiratory Denies cough - *Gastrointestinal Reports abdominal pain, Reports nausea - *Genitourinary Denies side pain - *Musculoskeletal Denies decreased muscle mass - Integumentary/Breasts Denies change in hair - *Neurologic Reports weakness, Denies abnormal movements - Psychiatric Reports anxiety - Endocrine Denies flushing - Allergic/Immunologic Denies itchy eyes Exam Vital signs and Labs for Last 24 Hours: Temp Pulse Resp BP Pulse Ox 98.4 F 79 17 130/79 97 09/18/21 16:00 09/18/21 16:00 09/18/21 16:00 09/18/21 16:00 09/18/21 16:00 Laboratory Results - last 24 hr 09/17/21 16:15: Blood Type A Positive, Antibody Screen Negative, Crossmatch (AHG) See Detail 09/17/21 16:15: Blood Type Confirm A Positive 09/17/21 17:02: SARS-CoV-2 (PCR) Not detected, Influenza A Untype (PCR) Not detected, Influenza Type B (PCR) Not detected 09/17/21 18:09: Troponin I 1.02 H 09/17/21 21:05: Troponin I 1.08 H 09/18/21 02:05: Hgb 9.5 L D, Hct 31.3 L 09/18/21 05:51: WBC 14.8 H, RBC 4.09 L, Hgb 9.5 L, Hct 30.5 L, MCV 74.5 L, MCH 23.2 L, MCHC 31.1 L, RDW 17.4, Plt Count 584 H D, MPV 8.3, Neut % (Auto) 83.7 H, Lymph % (Auto) 9.7 L, [place] % (Auto) 5.8, Eos % (Auto) 0.6, Baso % (Auto) 0.1, Neut # (Auto) 12.4 H, Lymph # (Auto) 1.4, [place] # (Auto) 0.9, Eos # (Auto) 0.1, Baso # (Auto) 0.0 09/18/21 05:51: Sodium 137, Potassium 3.8 D, Chloride 104, Carbon Dioxide 27, Anion Gap 9.8, BUN 9, Creatinine 0.80, Estimated Creat Clear 47, Estimated GFR 73, Est GFR ( Amer) 88, Glucose 133 H, Calcium 8.5 I & O for Last 24 hours: Intake & Output 09/16/21 09/17/21 09/18/21 09/19/21 11:59 11:59 11:59 11:59 Intake Total 0 / 0 Balance 0 / 0 Weight 112 lb 1 oz - Constitutional no acute distress, thin - *Routine HEENT Exam Head: Present: normocephalic Eye: Present: PERRL ENT: Present: mucous membranes moist - *Routine Neck Exam Present: supple. Absent: lymphadenopathy - *Routine Respiratory Exam Present: CTA bilaterally - *Routine Cardiovascular Exam Present: RRR - *Routine Abdominal Exam Present: soft, normoactive bowel sounds. Absent: tenderness - *
--- NOTE | 2021-09-18 17:45 | PC.NURSE ---
IV removed from LAC 2X2 with coban intact. Pt. tolerated well. manager monitoring removed.
--- NOTE | 2021-09-18 18:00 | PC.NURSE ---
Discharge education provided. Questions encouraged and answered. Pt. V/U.
--- NOTE | 2021-09-18 18:13 | PC.NURSE ---
Pt. left unit via wheelchair, accompanied by staff x1 and family member.
== END 2021-09-18 18:13 | disposition home or self-care (01) ==
LOC: ER 18:04 → 2ND 18:45 → OB 20:15
PROVIDERS: Admitting Provider Emergency Medicine; Emergency Provider Emergency Medicine; PCP Family Medicine; Visit Provider Emergency Medicine
DX: R07.2 Precordial pain (principal); Z20.822 Contact with and (suspected) exposure to COVID-19; F17.210 Nicotine dependence, cigarettes, uncomplicated; D64.9 Anemia, unspecified; I42.9 Cardiomyopathy, unspecified; N13.2 Hydronephrosis with renal and ureteral calculous obstruction; N63.10 Unspecified lump in the right breast, unspecified quadrant; R91.8 Other nonspecific abnormal finding of lung field; R16.0 Hepatomegaly, not elsewhere classified
CPT/HCPCS: 36415; 71046; 71275; 74176; 80048; 80053; 81001; 82272; 83690; 84484; 85007; 85014; 85018; 85025; 86850; 93005; 93306; 96374; 96375; 99284; C9803; G0328; G0378; J2405; P9016; Q9967; U0003; U0005

== ENCOUNTER 2021-09-20 13:53 | Inpatient (IN) | payer BC, SELFPAY ==
[2021-09-20] VITALS (16 sets, daily range): BP systolic 107–153; BP diastolic 66–93; PULSE 70–80; RESP 17–24; TEMP 36.9–37; O2SAT 94–100; BMI 21.2; BMI 19.8
--- NOTE | 2021-09-20 15:00 | PC.NURSE ---
Pt up to restroom
[2021-09-20 15:01] LABS: Basophils % 0.3 % (0.1-2.0); Eosinophils % 0.2 % (0.1-12.0); Hematocrit 34.8 % (37.0-47.0); Hemoglobin 10.5 g/dL (12.2-16.2); Lymphocytes # 1.1 K/mm3 (0.7-4.5); Lymphocytes % 6.5 % (10-50); Mean Corpuscular HGB Conc 30.1 g/dL (31.8-35.4); Mean Corpuscular Hemoglobin 22.9 pg (27.0-31.2); Monocytes # 0.6 K/mm3 (0.1-1.0); Monocytes % 3.7 % (1.7-9.3); Neutrophils # 15.3 K/mm3 (1.8-7.8); Neutrophils % 89.4 % (37.0-80.0); Platelet Count 682 K/mm3 (142-424); Red Blood Count 4.58 M/mm3 (4.20-5.40); Red Cell Distribution Width 18.6 % (11.5-17.5); White Blood Count 17.2 K/mm3 (4.8-10.8)
[2021-09-20 15:04] LABS: Alanine Aminotransferase 14 U/L (12-78); Albumin Level 3.6 g/dl (3.5-5.0); Alkaline Phosphatase 127 U/L (38-126); Anion Gap 8.2 mEq/L (5-15); Aspartate Amino Transferase 29 U/L (14-36); Bilirubin,Total 0.6 mg/dl (0.2-1.3); Blood Urea Nitrogen 11 mg/dl (7-17); Calcium 9.1 mg/dl (8.4-10.2); Carbon Dioxide 31 mmol/L (22.0-30.0); Chloride 97 mmol/L (98-107); Creatinine Clearance Estimated 51 mL/min (50-200); Estimated Glomerular Filt Rate 64 ml/min (>60); GFR (African American) 77 ML/MIN (>60); Globulin 3.5 g/dL (1.3-3.2); Glucose 128 mg/dl (74-100); Lactic Acid 1.1 mmol/L (0.7-2.1); Lipase 80 U/L (23-300); Potassium 3.2 mmoL/L (3.5-5.1); Sodium 133 mmol/L (136-145); Total Protein,Serum 7.1 g/dl (6.3-8.2)
[2021-09-20 15:11] LABS: Microscopic, Urine URINE MICROSCOPIC (MICROSCOPIC)
[2021-09-20 15:13] LABS: Appearance,Urine SL CLOUDY (Clear); Blood, Urine Negative (Negative); Color,Urine YELLOW (Yellow); Glucose,Urine (UA) Negative (Negative); Ketones,Urine Negative (Negative); Leukocyte Esterase,Urine Negative (Negative); Nitrate,Urine Negative (Negative); Protein,Urine TRACE (Negative); Specific Gravity, Urine >= 1.030 (1.005-1.030); Urobilinogen,Urine 0.2 EU/dl (0.2)
[2021-09-20 15:15] LABS: MANUAL DIFFERENTIAL MANUAL DIFFERENTIAL (MANUAL DIFF)
[2021-09-20 15:38] LABS: Bilirubin,Urine 1+ (Negative); RBC,Urine Occasional #/hpf (0-3); WBC,Urine Occasional #/hpf (0-3)
[2021-09-20 15:39] LABS: Bacteria,Urine Trace /lpf
[2021-09-20 16:12] LABS: Lymphocytes % 5 % (10-50); Monocytes % 4 % (2-9); Neutrophils % 88 % (42-76); Total Cells Counted 100
[2021-09-20 16:13] LABS: Anisocytosis 2+; Hypochromasia 2+; Microcytosis 1+; Platelet Estimate Marked Increase
--- NOTE | 2021-09-20 16:19 | CT_ITS ---
PROCEDURE INFORMATION: Exam: CT Abdomen And Pelvis With Contrast Exam date and time: 09/20/2021 4:19 PM Age: 61 years old Clinical indication: Abdominal pain; Generalized. Liver masses, adenopathy, pulmonary mass on prior CT exams TECHNIQUE: Imaging protocol: Computed tomography of the abdomen and pelvis with contrast. Radiation optimization: All CT scans at this facility use at least one of these dose optimization techniques: automated exposure control; mA and/or kV adjustment per patient size (includes targeted exams where dose is matched to clinical indication); or iterative reconstruction. Contrast material: ISOVUE; Contrast volume: 75 ml; Contrast route: IV; COMPARISON: CT ABDOMEN PELVIS WO CON 09/17/2021 3:23 PM FINDINGS: Lungs: 4.6 cm posteromedial right lower pulmonary mass again noted, with central cystic or necrotic component. Worsened atelectasis in the posterior right lower lobe compared with the prior CT. Subsegmental atelectasis in the left lingula. 4-5 mm lateral right basilar pulmonary nodule series 3, image 6, unchanged. Pleural spaces: A new small layering right pleural effusion, including subpulmonic fluid.. Heart: Cardiomegaly. There is a new intra luminal filling defect at the apex of the left ventricle, not seen on the prior CTA exam of 09/17/2021. This measures approximately 8 mm diameter and could be clot or a metastatic deposit, coronal series 1001, image 15 and axial series 3, image 9. Liver: No hepatomegaly. 2 hypoattenuating/hypoenhancing lesions again noted in the left lobe of the liver, up to 1.4 cm series 3 image 11 and up to 1.4 cm in the lateral segment of left lobe series 3, image 17; there are some tiny hypoattenuating lesions of 2-3 mm surrounding the lateral segment lesion, see coronal series 1001 images 11 -12. No significant interval change compared with the prior exam from 09/17/2021. Gallbladder and bile ducts: Mildly distended gallbladder. No wall thickening. No calcified stones. No biliary dilatation. Pancreas: The pancreas is normal. Spleen: No splenomegaly. Calcified granuloma. Adrenal glands: Mild asymmetric thickening of the left adrenal gland compared with right series 3, image 23, no discrete nodules. Kidneys and ureters: Worsened right hydronephrosis and hydroureter compared with the prior exam. Two possible obstructing calcified distal ureteral stones as previously reported, within versus abutting the distal ureter , see coronal coronal image 32, of 6 and 4 mm. However, the ureter appears narrowed above this, and there may be a neoplastic stricture in the mid ureter. There is worsened perinephric and periureteral edema fluid since the prior study, which could be due to prominent pyelo sinus reflux versus infection. No loculated, rim enhancing abscess collection is seen. No delayed images were obtained, which may help to better evaluate the ureter. No hydronephrosis, hydroureter, or obstructing stones on the left. No suspicious renal mass. Tiny subcentimeter hypoattenuating lesions in the right renal cortex are likely cysts, too small to accurately characterize. Stomach and bowel: The stomach is normal. There is no evidence of intestinal perforation or obstruction. Gaseous distention of small intestinal loops with air-fluid levels, but no significantly dilated loops or mucosal thickening. Heterogeneous thickened appearance of the right colon with hyperenhancement series 3, images 55-65 this loop was also thickened on the prior exam, this could be infiltrative neoplasm, or less likely colitis. A few scattered colonic diverticula. Appendix: No evidence of appendicitis. Intraperit
--- NOTE | 2021-09-20 16:26 | PC.NURSE ---
Spoke with sawyer from RAD for CT
--- NOTE | 2021-09-20 16:36 | HMH.EDABDPAI ---
ED Disposition Clinical Impression: Hydronephrosis, Bilateral pulmonary embolism Disposition: Admitted As Inpatient Condition on Discharge: Fair Instructions: DI for Acute Abdominal Pain Referrals: Andrew Augustine [Primary Care Provider] - - Critical Care Critical Care Time: Yes Attestation: On 09/20/21, the high probability of a clinically significant, sudden or life threatening deterioration of the following system(s) required my full and direct attention, intervention and personal management. The time I documented below is in addition to time spent performing reported procedures but includes the following listed in this critical care notation. Total Critical Care Time: 35 Vital system(s) involved:: Circulatory Failure My critical care processes included: Assessment & monitoring of V/S, Initial and Re-exams, Data Review/Interpretation, Coordinating Care, Medication Orders and management, Documentation Medical Decision Making - Medical Records Medical records reviewed: Yes: I reviewed the patient's medical records. - Jonathan Inquiry Pt receiving controlled substance: No Jonathan was queried for this patient: No Vital Signs: 09/20/21 14:31 09/20/21 15:07 09/20/21 15:30 Temperature 98.6 F Temperature Source Oral Pulse Rate 77 74 Pulse Rate [Right Radial] 74 Respiratory Rate 18 Blood Pressure 146/82 H 121/74 Blood Pressure [Right Arm] 153/93 H Blood Pressure Mean 106 90 Blood Pressure Mean [Right Arm] 113 Blood Pressure Source [Right Arm] Automatic Cuff Blood Pressure Position [Right Arm] Supine 02 Sat by Pulse Oximetry 98 95 94 L Oxygen Delivery Method Room Air 09/20/21 16:00 09/20/21 16:30 09/20/21 17:00 Temperature Temperature Source Pulse Rate 74 80 75 Pulse Rate [Right Radial] Respiratory Rate Blood Pressure 121/75 121/82 131/79 Blood Pressure [Right Arm] Blood Pressure Mean 87 Blood Pressure Mean [Right Arm] Blood Pressure Source [Right Arm] Blood Pressure Position [Right Arm] 02 Sat by Pulse Oximetry 94 L 97 96 Oxygen Delivery Method - Lab Data Lab results reviewed: Yes: I reviewed the patient's lab results. Lab Results 09/20/21 14:27: WBC 17.2 H, RBC 4.58, Hgb 10.5 L, Hct 34.8 L, MCV 76.0 L, MCH 22.9 L, MCHC 30.1 L, RDW 18.6 H, Plt Count 682 H, MPV 8.0, Neut % (Auto) 89.4 H, Lymph % (Auto) 6.5 L, [place] % (Auto) 3.7, Eos % (Auto) 0.2, Baso % (Auto) 0.3, Neut # (Auto) 15.3 H, Lymph # (Auto) 1.1, [place] # (Auto) 0.6, Eos # (Auto) 0.0, Baso # (Auto) 0.0, Total Counted 100, Neutrophils % (Manual) 88 H, Lymphocytes % (Manual) 5 L, Atypical Lymphs % 3.0, Monocytes % (Manual) 4, Platelet Estimate Marked increase, Hypochromasia 2+, Anisocytosis 2+, Microcytosis 1+ 09/20/21 14:27: Sodium 133 L, Potassium 3.2 L, Chloride 97 L, Carbon Dioxide 31 H, Anion Gap 8.2, BUN 11, Creatinine 0.90, Estimated Creat Clear 51, Estimated GFR 64, Est GFR ( Amer) 77, Glucose 128 H, Calcium 9.1, Total Bilirubin 0.6, AST 29, ALT 14, Alkaline Phosphatase 127 H, Total Protein 7.1, Albumin 3.6, Globulin 3.5 H, Albumin/Globulin Ratio 1.0 L, Lipase 80 09/20/21 14:27: Lactate 1.1 09/20/21 14:27: Troponin I 0.56 H 09/20/21 15:07: Urine Color Yellow, Urine Appearance Sl cloudy, Urine pH 6.0, Ur Specific [place] >= 1.030, Urine Protein Trace, Urine Glucose (UA) Negative, Urine Ketones Negative, Urine Blood Negative, Urine Nitrate Negative, Urine Bilirubin 1+ A, Urine Urobilinogen 0.2, Ur Leukocyte Esterase Negative, Urine RBC Occasional, Urine WBC Occasional, Ur Squamous Epith Cells 5-10, Urine Bacteria Trace Result diagrams: 09/20/21 14:27 09/20/21 14:27 Orders (Tests/Meds): ED MEDICATIONS Discontinued Medications Generic Name Dose Route Start Last Admin Trade Name Freq PRN Reason Stop Dose Admin Hydrocodone Bitart/Acetaminophen 1 tab 09/20/21 17:09 09/20/21 17:16 Hydrocodone/Apap 5/325 Mg Tablet PO 09/20/21 17:10 1 tab ONCE ONE Administration Enoxaparin S
--- NOTE | 2021-09-20 16:45 | PC.NURSE ---
Pt is at CT
--- NOTE | 2021-09-20 16:59 | PC.NURSE ---
Pt is back from CT
--- NOTE | 2021-09-20 17:58 | CT_ITS ---
PROCEDURE INFORMATION: Exam: CTA Chest With Contrast Exam date and time: 09/20/2021 5:58 PM Age: 61 years old Clinical indication: Shortness of breath; Additional info: Concern for pe TECHNIQUE: Imaging protocol: Computed tomographic angiography of the chest with contrast. 3D rendering (Not supervised by radiologist): MIP and/or 3D reconstructed images were created by the technologist. Radiation optimization: All CT scans at this facility use at least one of these dose optimization techniques: automated exposure control; mA and/or kV adjustment per patient size (includes targeted exams where dose is matched to clinical indication); or iterative reconstruction. Contrast material: ISOVUE 370; Contrast volume: 70 ml; Contrast route: INTRAVENOUS (IV); COMPARISON: CT ANGIO CHEST PE PROTOCOL 09/17/2021 3:58 PM FINDINGS: Pulmonary arteries: There are multiple new right lower lobe pulmonary emboli, compared with 09/17/2021. There are segmental and subsegmental emboli, see coronal series 1001, images 38-40 . There are also some occlusive upper lobe emboli, see coronal series 1001, image 35-36, axial series 5, images 59-62. Some questionable tiny left emboli versus flow artifacts and motion artifacts. Aorta: Upper normal diameter ascending aorta approximate 3.9 cm. No significant aneurysm. No evidence of dissection. Soft and hard atherosclerotic plaques in the thoracic aorta. Lungs: Approximate 4.6 x 2.9 x 4.3 cm posterior right lower lobe complex pulmonary mass again noted. Multiple small bilateral pulmonary nodules suspicious for metastases, including a 4 mm posterolateral right pulmonary nodule series 5, image 99.Ovoid 4.6 cm anterior left upper lobe nodule abutting a pulmonary artery series 5, image 45. A possible 3 mm peripheral lateral right apical nodule series 5, image 27, versus distended terminal blood vessel. A central right upper lobe nodule of 5 mm series 5, image 49. Another 5 mm nodule series 5, image 54 on the right. No pulmonary consolidation. Significantly worsened dense atelectasis in the posterior right lower lobe compared with the prior exam. Milder patchy subsegmental atelectasis in the left lower lobe. Pleural spaces: A new small layering right pleural effusion compared with the prior chest CTA, this has heterogeneous density measurements up to 35 HU, suggesting complex fluid which could contain malignancy, blood products or infection. Heart: Heart is enlarged. Trace pericardial effusion. A new ovoid/nodular 1.2 x 0.7 x 7 mm intraluminal filling defect at the apex of left ventricle that is not seen on the prior exam, worrisome for a metastatic deposit versus adherent clot. (series 5, image 100, coronal images 14-16. ) Coronary artery calcifications. Heart RV/LV ratio: RV/LV ratio approximate 1, borderline enlarged. However, there is minimal reflux of contrast into the IVC and no reflux into the hepatic veins to confirm right heart strain. Lymph nodes: Some small mediastinal nodes, no significantly enlarged nodes by short axis criteria. Some small calcified mediastinal and left hilar nodes. Bones/joints: Osteopenia.There are spinal degenerative changes, with multilevel disc narrrowing and spondylosis. Soft tissues: There are no soft tissue masses or fluid collections. Other findings: For abdomen findings, please see the abdomen CT report. IMPRESSION: 1. Multiple pulmonary emboli, greatest in right lower and upper lobes, involving segmental and subsegmental branches. 2. A new 1.2 x 7 x 7 mm intraluminal nodule at the left ventricular apex, which could be a metastatic deposit versus adherent thrombus. 3. Cardio
--- NOTE | 2021-09-20 18:21 | PC.NURSE ---
Dr Roman talking to [facility] about paitent.
--- NOTE | 2021-09-20 18:43 | PC.NURSE ---
Dr Devika meadows. He is on for service.
--- NOTE | 2021-09-20 18:45 | PC.NURSE ---
speaking with Dr. Fortune
--- NOTE | 2021-09-20 18:51 | PC.NURSE ---
Calling [facility] at this time for possible transfer.
--- NOTE | 2021-09-20 18:53 | PC.NURSE ---
Hospitalist at [facility] will be returning you call.
[2021-09-20 18:55] LABS: Troponin I 0.56 ng/ml (0.00-0.034)
--- NOTE | 2021-09-20 19:11 | PC.NURSE ---
QI JACOBO speaking with JASMIN
--- NOTE | 2021-09-20 19:27 | PC.NURSE ---
Pt placed on waiting list at [facility]
--- NOTE | 2021-09-20 19:35 | PC.NURSE ---
called [phone] at this time. Spoke to someone at transfer center. was informed they are not accepting patients
--- NOTE | 2021-09-20 19:36 | PC.NURSE ---
[facility] not accepting pt at this time d/t divert
--- NOTE | 2021-09-20 19:37 | PC.NURSE ---
Calling at this time for possible transfer
--- NOTE | 2021-09-20 19:46 | PC.NURSE ---
Called [facility] [phone] at this time. Was informed they will not be accepting this patient.
--- NOTE | 2021-09-20 19:53 | PC.NURSE ---
does not have any available beds. [facility] has declined d/t divert.
--- NOTE | 2021-09-20 21:25 | PC.NURSE ---
REPORT GIVEN TO SUZY [id number]
[2021-09-20 21:28] LABS: Coronavirus 19, PCR Not Detected (NotDetected); Influenza A, PCR Not Detected (NotDetected); Influenza B, PCR Not Detected (NotDetected)
--- NOTE | 2021-09-20 22:24 | PC.NURSE ---
pt arrived to floor at this time
[2021-09-20 22:31] LABS: Troponin I 0.49 ng/ml (0.00-0.034)
[2021-09-21] VITALS: BP 98/54; PULSE 70; PULSE 72; RESP 16; TEMP 37.1; O2SAT 91
[2021-09-21 01:44] LABS: Troponin I 0.48 ng/ml (0.00-0.034)
--- NOTE | 2021-09-21 01:47 | PC.NURSE ---
Rosa M in lab called with a troponin of 0.48 at this time. Patient name, and value was repeated and verified x2. Value was delayed due to maintenance of one analyzer and the other machine being down, per oRsa M in lab. MD consumer relations specialist was notified at this time.
[2021-09-21 04:00] VITALS: BP 116/47; PULSE 80; RESP 17; TEMP 37.1; O2SAT 96
[2021-09-21 06:49] LABS: Basophils % 0.2 % (0.1-2.0); Eosinophils % 0.2 % (0.1-12.0); Monocytes # 0.9 K/mm3 (0.1-1.0); Monocytes % 5.5 % (1.7-9.3)
[2021-09-21 07:00] LABS: Hematocrit 32.3 % (37.0-47.0); INR 0.99 (0.9-1.1); Lymphocytes # 1.5 K/mm3 (0.7-4.5); Lymphocytes % 9.3 % (10-50); Mean Corpuscular HGB Conc 29.7 g/dL (31.8-35.4); Mean Corpuscular Volume 77.4 fl (81-99); Mean Platelet Volume 8.2 fl (7.4-10.4); Neutrophils # 13.2 K/mm3 (1.8-7.8); Neutrophils % 84.8 % (37.0-80.0); Platelet Count 611 K/mm3 (142-424); Prothrombin Time 11.2 seconds (10.1-12.5); Red Blood Count 4.18 M/mm3 (4.20-5.40); Red Cell Distribution Width 19.3 % (11.5-17.5); White Blood Count 15.6 K/mm3 (4.8-10.8)
[2021-09-21 07:02] LABS: Alanine Aminotransferase 10 U/L (12-78); Albumin/Globulin Ratio 0.9 (1.1-1.8); Alkaline Phosphatase 111 U/L (38-126); Anion Gap 6.2 mEq/L (5-15); Aspartate Amino Transferase 21 U/L (14-36); Bilirubin,Total 0.3 mg/dl (0.2-1.3); Blood Urea Nitrogen 12 mg/dl (7-17); Calcium 8.7 mg/dl (8.4-10.2); Carbon Dioxide 30 mmol/L (22.0-30.0); Chloride 99 mmol/L (98-107); Creatinine Clearance Estimated 47 mL/min (50-200); Estimated Glomerular Filt Rate 56 ml/min (>60); GFR (African American) 68 ML/MIN (>60); Globulin 3.4 g/dL (1.3-3.2); Glucose 110 mg/dl (74-100); Hemoglobin 9.6 g/dL (12.2-16.2); Potassium 3.2 mmoL/L (3.5-5.1); Sodium 132 mmol/L (136-145); Total Protein,Serum 6.4 g/dl (6.3-8.2)
[2021-09-21 07:04] LABS: MANUAL DIFFERENTIAL MANUAL DIFFERENTIAL (MANUAL DIFF)
--- NOTE | 2021-09-21 07:32 | P.CONPHA_ITS ---
[facility] Pharmacy VTE Monitoring - Patient Demographics Admission date: 09/21/21 Report Date: 09/21/21 Time: 07:33 Allergies/Adverse Reactions: Patient Allergies No Known Allergies Allergy (Verified 09/17/21 14:59) Height: 1.6 m Weight: 50.802 kg Patient Problems: Current Active Problems Hydronephrosis (Acute) Bilateral pulmonary embolism (Acute) - VTE Risk Labs: VTE Related Lab Results Hgb 9.6 g/dL (12.2-16.2) L 09/21/21 05:54 Hct 32.3 % (37.0-47.0) L 09/21/21 05:54 Plt Count 611 K/mm3 (142-424) H 09/21/21 05:54 BUN 12 mg/dl (7-17) 09/21/21 05:54 Creatinine 1.00 mg/dl (0.52-1.04) 09/21/21 05:54 Estimated Creat Clear 47 mL/min (50-200) 09/21/21 05:54 Was VTE Risk Assessment Performed: Yes VTE Score: 3 VTE Risk Level: Low Risk Clinical Trial Participant: No - Prophylaxis VTE Prophylaxis Ordered?: Yes Types of VTE Prophylaxis: TEDS Knee High
--- NOTE | 2021-09-21 07:39 | HMH.PHAINT ---
Verified home medications with [facility] pharmacy
[2021-09-21 08:00] VITALS: BP 117/70; PULSE 80; PULSE 81; RESP 16; TEMP 37.4; O2SAT 95
--- NOTE | 2021-09-21 08:38 | HMH.HP ---
*Admission Date: 09/21/21 *Chief complaint: Right-sided pain, dyspnea, fatigue *History of present illness: 61-year-old white female, heavy smoker for many years, who does not routinely go to the doctor and has not had any routine cancer screenings over the past several years, has felt worse over the past 3 to 4 weeks with increasing right-sided pain, intermittent abdominal complaints of nausea, vomiting, burping and alternating diarrhea and constipation along with some unintentional weight loss. She saw her primary physician in [place] several months ago, the diagnosis of IBS was entertained and she felt better with some supportive/symptomatic treatment. However she worsened and went to the emergency department in [facility] where she reports no films were done and she was diagnosed with gastritis and discharged. She felt more symptoms and came to the [place] ER on Saturday, of this week, where CT scanning was done which revealed evidence of some masses in kidney stones, she was also found to have lowered ejection fraction on an outpatient echocardiogram and she was started on beta-blockers and angiotensin receptor blockers. Cardiology appointment was set up as well as several appointments for general surgery and urology given the suspicious appearance of masses on her CT scans. She continued to feel poorly and came back to the emergency department yesterday. Repeat CT scanning showed progression of ureteral mass/blockage with some possible stones and hydronephrosis. She also has the new appearance of PE on CTA, and pleural effusion that appears to be malignant. Along with multiple areas in the abdomen, colon and even the uterus consistent with widely metastatic disease. She was admitted to hospital for further evaluation, specialty consultation and treatment of her pain and IV fluids. [facility] History I have reviewed the patient's past medical history: Yes Medical History: Reports:: Anxiety, Gastroesophageal Reflux Disease(GERD) Denies:: Cancer, Diabetes Mellitus Type 1, Diabetes Mellitus Type 2, MRSA *Have you ever received a pneumonia vaccine?: No *Have you received a flu vaccine this season?: No Other Medical History: Reports: Anemia Amputation: No Fractures: No - *Social History Smoking Status: Current every day smoker Tobacco Type: cigarettes # Packs/Day (cigarettes): 1 #Yrs smoked (if former smoker): 30 Smoking End Date: 09/16/21 Alcohol Intake: never *Occupational Status:: employed Housing: house Household Members: children *Travel in the last 8 weeks: None - Psychiatric History Pschychiatric History:: Reports:: Anxiety Family Hx:: Cancer, Stroke Review of Systems - Review of Systems Review of systems:: pertinent systems reviewed and negative unless documented below Meds Home Medications Medication Instructions Recorded Confirmed Type Pantoprazole Sodium [Protonix 40mg 40 mg PO DAILY 09/17/21 09/21/21 History tablet] Nicotine [Nicoderm 21mg/24hr 21 mg TD DAILYP PRN 30 Days #30 09/18/21 09/21/21 Rx patch] patch Irbesartan [Avapro 75mg 75 mg PO DAILY 09/21/21 09/21/21 History tablet] carvediloL [Coreg 3.125mg Tablet] 3.125 mg PO BID 09/21/21 09/21/21 History Allergies Allergy/AdvReac Type Severity Reaction Status Date / Time No Known Allergies Allergy Verified 09/17/21 14:59 Exam Vital signs and Labs for Last 24 Hours: Temp Pulse Resp BP Pulse Ox 98.8 F 80 17 116/47 L 96 09/21/21 04:00 09/21/21 04:00 09/21/21 04:00 09/21/21 04:00 09/21/21 04:00 Laboratory Results - last 24 hr 09/20/21 14:27: WBC 17.2 H, RBC 4.58, Hgb 10.5 L, Hct 34.8 L, MCV 76.0 L, MCH 22.9 L, MCHC 30.1 L, RDW 18.6 H, Plt Count 682 H, MPV 8.0, Neut % (Auto) 89.4 H, Lymph % (Auto) 6.5 L, [place] % (Auto) 3.7, Eos % (Auto) 0.2, Baso % (Auto) 0.3, Neut # (Auto) 15.3 H, Lymph # (Auto) 1.1, [place] # (Auto) 0.6, Eos # (Auto) 0.0, Baso # (Auto) 0.0, Total Counted 100, Neutrophils % (Manual) 88 H, Lymphocyte
--- NOTE | 2021-09-21 08:39 | CA_ITS ---
APPROVED REPORT EXAM: Comprehensive 2D, Doppler, and color-flow Echocardiogram Utility Porter: Shayna Dietz CRT Ht: 5 ft 2 in Wt: 112lbs BSA: 1.49 BP: 110/70 mmHg Indications: R/O thrombus Conclusion 1. Limited echocardiogram with Definity contrast was done to evaluate left ventricular systolic function and exclude presence of thrombus. 2. Normal left ventricular size, visually estimated ejection fraction approximately 45%, there is discrete wall motion abnormality involving the mid to distal septum and apical wall. There is no left ventricular thrombus seen. 3. The right atrium and right ventricle appears to be normal size and contractility there is no thrombus seen in right ventricle. Electronically signed by : Uvaldo Worley MD 09/22/2021 15:42:38
[2021-09-21 08:46] LABS: Lymphocytes % 7 % (10-50); Monocytes % 9 % (2-9); Neutrophils % 84 % (42-76); Total Cells Counted 100
[2021-09-21 08:47] LABS: Anisocytosis 2+; Microcytosis 2+; Platelet Estimate Moderate Increase; RBC Morphology Normal
[2021-09-21 08:48] LABS: Hypochromasia 2+
--- NOTE | 2021-09-21 08:56 | HMH.CNCARD ---
History of Present Illness Consult date: 09/21/21 Requesting physician: Alfonso Fortune Consult reason: chest pain Chief complaint: Pulmonary emboli Additional Medical History:: 1. Tobacco use, 0.5 pack/day x 30 years 2. GERD 3. Suspected metastatic cancer with nodules in the lungs, liver and colon, 09/2021. Work-up in progress. 4. Anemia. Likely related to suspected metastatic cancer with colon mass. A. Status post transfusion, 09/17/2021. 5. Thrombocytosis with plt count 600-800K 6. Dilated Cardiomyopathy, newly diagnosed 09/2021 A. Echo, 09/18/2021, EF 20-30% with septal, anterior and dieter-apical wall motion abnormalities. RVSP is 46 mm Hg. Trace MR, TR with mild RV enlargement. Possible LV thrombus. B. Limited Echo with definity contrast, 09/21/2021, No evidence of LV thrombus. C. Coronary calcifications noted on CTA scans, 09/2021 History of present illness: 61-year-old white female recently admitted earlier this week with multiple abnormalities in the liver,colon and lung with newly diagnosed cardiomyopathy presented to the emergency department yesterday with right-sided abdominal discomfort. Patient work-up in the ER identified multiple pulmonary emboli some new compared with recent CT scan of 09/18/2021. CT scan of the abdomen showed possible LV thrombus and cardiology has been consulted for further evaluation. Echocardiogram from 09/18/2021 showed no evidence of left ventricular thrombus but will repeat this today with Definity contrast for further evaluation. Patient is in shock that she may have metastatic cancer. EKG is sinus with 2 PAC's. [facility] History Medical History: Reports:: Anxiety, Gastroesophageal Reflux Disease(GERD) Denies:: Cancer, Diabetes Mellitus Type 1, Diabetes Mellitus Type 2, MRSA *Have you ever received a pneumonia vaccine?: No *Have you received a flu vaccine this season?: No Other Medical History: Reports: Anemia Amputation: No Fractures: No - *Social History Smoking Status: Current every day smoker Tobacco Type: cigarettes # Packs/Day (cigarettes): 1 #Yrs smoked (if former smoker): 30 Smoking End Date: 09/16/21 Alcohol Intake: never *Occupational Status:: employed Housing: house Household Members: children *Travel in the last 8 weeks: None - Psychiatric History Pschychiatric History:: Reports:: Anxiety Family Hx:: Cancer, Stroke Meds Home Medications Medication Instructions Recorded Confirmed Type Pantoprazole Sodium [Protonix 40mg 40 mg PO DAILY 09/17/21 09/21/21 History tablet] Nicotine [Nicoderm 21mg/24hr 21 mg TD DAILYP PRN 30 Days #30 09/18/21 09/21/21 Rx patch] patch Irbesartan [Avapro 75mg 75 mg PO DAILY 09/21/21 09/21/21 History tablet] carvediloL [Coreg 3.125mg Tablet] 3.125 mg PO BID 09/21/21 09/21/21 History Allergies Allergy/AdvReac Type Severity Reaction Status Date / Time No Known Allergies Allergy Verified 09/17/21 14:59 Exam Vital signs and Labs for Last 24 Hours: Temp Pulse Resp BP Pulse Ox 98.8 F 80 17 116/47 L 96 09/21/21 04:00 09/21/21 04:00 09/21/21 04:00 09/21/21 04:00 09/21/21 04:00 Laboratory Results - last 24 hr 09/20/21 14:27: WBC 17.2 H, RBC 4.58, Hgb 10.5 L, Hct 34.8 L, MCV 76.0 L, MCH 22.9 L, MCHC 30.1 L, RDW 18.6 H, Plt Count 682 H, MPV 8.0, Neut % (Auto) 89.4 H, Lymph % (Auto) 6.5 L, [place] % (Auto) 3.7, Eos % (Auto) 0.2, Baso % (Auto) 0.3, Neut # (Auto) 15.3 H, Lymph # (Auto) 1.1, [place] # (Auto) 0.6, Eos # (Auto) 0.0, Baso # (Auto) 0.0, Total Counted 100, Neutrophils % (Manual) 88 H, Lymphocytes % (Manual) 5 L, Atypical Lymphs % 3.0, Monocytes % (Manual) 4, Platelet Estimate Marked increase, Hypochromasia 2+, Anisocytosis 2+, Microcytosis 1+ 09/20/21 14:27: Sodium 133 L, Potassium 3.2 L, Chloride 97 L, Carbon Dioxide 31 H, Anion Gap 8.2, BUN 11, Creatinine 0.90, Estimated Creat Clear 51, Estimated GFR 64, Est GFR ( Amer) 77, Glucose 128 H, Calcium 9.1, Total Bilirubin 0.6, AST 29, AL
--- NOTE | 2021-09-21 09:26 | CA_ITS ---
APPROVED REPORT Bilateral Lower Extremity Venous Study for DVT. Independent Living Specialist: CT Indications Current Smoker Hypoxia Risk Factors Malignancy Current Smoker PE, Mets CA, smoker Past History Pulmonary Embolism Vein Imaging CFV (R): compressive, spontaneous, phasic, augmentation SFJ (R): compressive, spontaneous, phasic, augmentation FEM (R): compressive, spontaneous, phasic, augmentation POP (R): compressive, spontaneous, phasic, augmentation DFV (R): compressive, spontaneous, phasic, augmentation PTV (R): compressive, spontaneous, phasic, augmentation GSV (R): compressive, spontaneous, phasic, augmentation Peroneals (R):Partially Compressible GAS (R): compressive, spontaneous, phasic, augmentation CFV (L): compressive, spontaneous, phasic, augmentation SFJ (L): compressive, spontaneous, phasic, augmentation FEM (L): compressive, spontaneous, phasic, augmentation POP (L): compressive, spontaneous, phasic, augmentation DFV (L): compressive, spontaneous, phasic, augmentation PTV (L): compressive, spontaneous, phasic, augmentation GSV (L): compressive, spontaneous, phasic, augmentation Peroneals (L):compressive, spontaneous, phasic, augmentation GAS (L): compressive, spontaneous, phasic, augmentation Findings RLE + DVT in peroneal vein. Visible thrombus noted, vessel not compressible. RLE - for SVT. LLE - for DVT/SVT. No reflux noted Conclusion RLE + DVT in peroneal vein. Visible thrombus noted, vessel not compressible. RLE - for SVT. LLE - for DVT/SVT. No reflux noted Critical Notification Critical Value: Yes Physician Notified Date: 09/21/2021 Time: 10:55 Physician Name: Noemí Report Read Back Electronically signed by : Montana Diaz MD 09/21/2021 17:23:03
--- NOTE | 2021-09-21 10:49 | HMH.CONS ---
*Admission Date: 09/21/21 *Reason for consult:: Right ureteral stone with obstruction *History of present illness: 61-year-old white female seen 2 days ago right ureteral calculus returns with worsening right renal colic. Repeat CT scan shows right hydronephrosis is worse than the previous scan. She is also complaining of some shortness of breath and a BAL of the chest was performed showing multiple urinary emboli with possible mass in the left ventricle. Also has a right pulmonary mass and lymphadenopathy well as a right colon abnormality.. Biopsies are pending. Her white count last evening in the emergency room was 17.2. It is improved this morning to 13.6. She appears comfortable at the bedside. She is on Lovenox. [facility] History Medical History: Reports:: Anxiety, Gastroesophageal Reflux Disease(GERD) Denies:: Cancer, Diabetes Mellitus Type 1, Diabetes Mellitus Type 2, MRSA *Have you ever received a pneumonia vaccine?: No *Have you received a flu vaccine this season?: No Other Medical History: Reports: Anemia Amputation: No Fractures: No - *Social History Smoking Status: Current every day smoker Tobacco Type: cigarettes # Packs/Day (cigarettes): 1 #Yrs smoked (if former smoker): 30 Smoking End Date: 09/16/21 Alcohol Intake: never *Occupational Status:: employed Housing: house Household Members: children *Travel in the last 8 weeks: None - Psychiatric History Pschychiatric History:: Reports:: Anxiety Family Hx:: Cancer, Stroke Review of Systems - Review of Systems Review of systems:: pertinent systems reviewed and negative unless documented below Meds Home Medications Medication Instructions Recorded Confirmed Type Pantoprazole Sodium [Protonix 40mg 40 mg PO DAILY 09/17/21 09/21/21 History tablet] Nicotine [Nicoderm 21mg/24hr 21 mg TD DAILYP PRN 30 Days #30 09/18/21 09/21/21 Rx patch] patch Irbesartan [Avapro 75mg 75 mg PO DAILY 09/21/21 09/21/21 History tablet] carvediloL [Coreg 3.125mg Tablet] 3.125 mg PO BID 09/21/21 09/21/21 History Allergies Allergy/AdvReac Type Severity Reaction Status Date / Time No Known Allergies Allergy Verified 09/17/21 14:59 Exam Vital signs and Labs for Last 24 Hours: Temp Pulse Resp BP Pulse Ox 99.3 F 81 16 117/70 95 09/21/21 08:00 09/21/21 08:00 09/21/21 08:00 09/21/21 08:00 09/21/21 08:00 Laboratory Results - last 24 hr 09/20/21 14:27: WBC 17.2 H, RBC 4.58, Hgb 10.5 L, Hct 34.8 L, MCV 76.0 L, MCH 22.9 L, MCHC 30.1 L, RDW 18.6 H, Plt Count 682 H, MPV 8.0, Neut % (Auto) 89.4 H, Lymph % (Auto) 6.5 L, [place] % (Auto) 3.7, Eos % (Auto) 0.2, Baso % (Auto) 0.3, Neut # (Auto) 15.3 H, Lymph # (Auto) 1.1, [place] # (Auto) 0.6, Eos # (Auto) 0.0, Baso # (Auto) 0.0, Total Counted 100, Neutrophils % (Manual) 88 H, Lymphocytes % (Manual) 5 L, Atypical Lymphs % 3.0, Monocytes % (Manual) 4, Platelet Estimate Marked increase, Hypochromasia 2+, Anisocytosis 2+, Microcytosis 1+ 09/20/21 14:27: Sodium 133 L, Potassium 3.2 L, Chloride 97 L, Carbon Dioxide 31 H, Anion Gap 8.2, BUN 11, Creatinine 0.90, Estimated Creat Clear 51, Estimated GFR 64, Est GFR ( Amer) 77, Glucose 128 H, Calcium 9.1, Total Bilirubin 0.6, AST 29, ALT 14, Alkaline Phosphatase 127 H, Total Protein 7.1, Albumin 3.6, Globulin 3.5 H, Albumin/Globulin Ratio 1.0 L, Lipase 80 09/20/21 14:27: Lactate 1.1 09/20/21 14:27: Troponin I 0.56 H 09/20/21 15:07: Urine Color Yellow, Urine Appearance Sl cloudy, Urine pH 6.0, Ur Specific [place] >= 1.030, Urine Protein Trace, Urine Glucose (UA) Negative, Urine Ketones Negative, Urine Blood Negative, Urine Nitrate Negative, Urine Bilirubin 1+ A, Urine Urobilinogen 0.2, Ur Leukocyte Esterase Negative, Urine RBC Occasional, Urine WBC Occasional, Ur Squamous Epith Cells 5-10, Urine Bacteria Trace 09/20/21 21:21: SARS-CoV-2 (PCR) Not detected, Influenza A Untype (PCR) Not detected, Influenza Type B (PCR) Not detected 09/20/21 21:37: Troponin I 0.49 H
[2021-09-21 10:58] LABS: Magnesium 1.9 mg/dl (1.6-2.3)
--- NOTE | 2021-09-21 11:02 | HMH.PULMCON ---
*Admission Date: 09/21/21 *Reason for consult:: Lung mass, pulmonary embolism, pleural effusion *History of present illness: Ms. Maciel is 61-year-old female current smoker and [id number] smoking history, not undergoing age-appropriate screening, recently seen in the hospital for lung mass along with she also noted to have liver lesions, spiculated breast lesion possible colon mass discharge with a scheduled to follow-up as an outpatient basis presented to the hospital again with worsening pain along with abdominal discomfort and pulmonary was called for further management. [facility] History Medical History: Reports:: Anxiety, Gastroesophageal Reflux Disease(GERD) Denies:: Cancer, Diabetes Mellitus Type 1, Diabetes Mellitus Type 2, MRSA *Have you ever received a pneumonia vaccine?: No *Have you received a flu vaccine this season?: No Other Medical History: Reports: Anemia Amputation: No Fractures: No - *Social History Smoking Status: Current every day smoker Tobacco Type: cigarettes # Packs/Day (cigarettes): 1 #Yrs smoked (if former smoker): 30 Smoking End Date: 09/16/21 Alcohol Intake: never *Occupational Status:: employed Housing: house Household Members: children *Travel in the last 8 weeks: None - Psychiatric History Pschychiatric History:: Reports:: Anxiety Family Hx:: Cancer, Stroke ROS - Cons Reports anorexia, Reports lack of energy, Reports weakness, Reports weight loss - ENT Denies difficulty swallowing - Card Reports chest pain, Reports shortness of breath, Reports shortness of breath with activity - Resp Respiratory: Reports cough, Reports non-productive cough, Reports dyspnea, Denies excessive phlegm production, Denies coughing up blood, Denies pain on inspiration, Denies pain with cough, Denies cough with sputum production - GI Gastrointestingal: Reports: abdominal pain, heartburn - Psych Denies thoughts of hurting/killing others, Denies thoughts of hurting/killing yourself Meds Home Medications Medication Instructions Recorded Confirmed Type Pantoprazole Sodium [Protonix 40mg 40 mg PO DAILY 09/17/21 09/21/21 History tablet] Nicotine [Nicoderm 21mg/24hr 21 mg TD DAILYP PRN 30 Days #30 09/18/21 09/21/21 Rx patch] patch Irbesartan [Avapro 75mg 75 mg PO DAILY 09/21/21 09/21/21 History tablet] carvediloL [Coreg 3.125mg Tablet] 3.125 mg PO BID 09/21/21 09/21/21 History Allergies Allergy/AdvReac Type Severity Reaction Status Date / Time No Known Allergies Allergy Verified 09/17/21 14:59 Exam - Constitutional Constitutional:: Present: no acute distress, comfortable - HENMT Exam HENMT: Present: normocephalic, atraumatic - Eye Exam Eyes:: Present: normal appearance both eyes and related structures - Neck Exam Neck:: Present: normal visual inspection - Respiratory Exam Respiratory:: Present: able to speak in complete sentences, lungs clear, no respiratory distress. Absent: wheezing - Cardiovascular Exam Cardiac:: Present: S1, S2 - GI Exam GI:: Present: soft - Skin Exam Skin: Present: warm - Neurological Exam Neurological: Present: alert, awake - Extremities Exam Extremities: Present: no cyanosis, no clubbing, no edema Internal Medicine - CN: Reslt - Labs CBC & Chem 7: 09/21/21 05:54 09/21/21 05:54 Labs: Short CBC 09/20/21 09/21/21 Range/Units 14:27 05:54 WBC 17.2 H 15.6 H (4.8-10.8) K/mm3 Hgb 10.5 L 9.6 L (12.2-16.2) g/dL Hct 34.8 L 32.3 L (37.0-47.0) % Plt Count 682 H 611 H (142-424) K/mm3 BMP 09/20/21 09/21/21 14:27 05:54 Sodium 133 L 132 L Potassium 3.2 L 3.2 L Chloride 97 L 99 Carbon Dioxide 31 H 30 BUN 11 12 Creatinine 0.90 1.00 Glucose 128 H 110 H Calcium 9.1 8.7 Cardiac Enzymes 09/20/21 09/20/21 09/21/21 Range/Units 14:27 21:37 00:13 Troponin I 0.56 H 0.49 H 0.48 H (0.00-0.034) ng/ml Liver Function 09/20/21 09/21/21 Range/Units 14:27 05:54 Total Mikhail
[2021-09-21 12:00] VITALS: BP 97/64; PULSE 80; RESP 16; TEMP 37.4; O2SAT 96
--- NOTE | 2021-09-21 12:32 | HMH.GSCON ---
*Admission Date: 09/21/21 *Reason for consult:: Right breast mass; right colon mass *History of present illness: This is a 61-year-old female seen in consultation from Dr. Fortune for possible colonoscopy and for evaluation regarding right breast mass. She has recently been diagnosed with likely widely-metastatic disease of undetermined primary. She has also been diagnosed with pulmonary embolus and possible cardiac mass versus cardiac thrombus. She is currently scheduled undergo urologic intervention tomorrow for possible obstruction. Please see truncated HPI from admission H&P forwarded below. Forwarded from admission H&P (truncated): 61-year-old white female, heavy smoker for many years, who does not routinely go to the doctor and has not had any routine cancer screenings over the past several years, has felt worse over the past 3 to 4 weeks with increasing right-sided pain, intermittent abdominal complaints of nausea, vomiting, burping and alternating diarrhea and constipation along with some unintentional weight loss...She felt more symptoms and came to the [place] [facility] on Saturday, of this week, where CT scanning was done which revealed evidence of some masses in kidney stones, she was also found to have lowered ejection fraction on an outpatient echocardiogram and she was started on beta-blockers and angiotensin receptor blockers...Cardiology appointment was set up as well as several appointments for general surgery and urology given the suspicious appearance of masses on her CT scans...She continued to feel poorly and came back to the emergency department yesterday. Repeat CT scanning showed progression of ureteral mass/blockage with some possible stones and hydronephrosis. She also has the new appearance of PE on CTA, and pleural effusion that appears to be malignant. Along with multiple areas in the abdomen, colon and even the uterus consistent with widely metastatic disease. Review of Systems - Constitutional Denies chills - Eyes Denies change in vision - *Respiratory Denies cough - *Gastrointestinal Reports abdominal pain - *Neurologic Reports weakness [facility] History Medical History: Reports:: Anxiety, Gastroesophageal Reflux Disease(GERD) Denies:: Cancer, Diabetes Mellitus Type 1, Diabetes Mellitus Type 2, MRSA *Have you ever received a pneumonia vaccine?: No *Have you received a flu vaccine this season?: No Other Medical History: Reports: Anemia Amputation: No Fractures: No - *Social History Smoking Status: Current every day smoker Tobacco Type: cigarettes # Packs/Day (cigarettes): 1 #Yrs smoked (if former smoker): 30 Smoking End Date: 09/16/21 Alcohol Intake: never *Occupational Status:: employed Housing: house Household Members: children *Travel in the last 8 weeks: None - Psychiatric History Pschychiatric History:: Reports:: Anxiety Family Hx:: Cancer, Stroke Meds Home Medications Medication Instructions Recorded Confirmed Type Pantoprazole Sodium [Protonix 40mg 40 mg PO DAILY 09/17/21 09/21/21 History tablet] Nicotine [Nicoderm 21mg/24hr 21 mg TD DAILYP PRN 30 Days #30 09/18/21 09/21/21 Rx patch] patch Irbesartan [Avapro 75mg 75 mg PO DAILY 09/21/21 09/21/21 History tablet] carvediloL [Coreg 3.125mg Tablet] 3.125 mg PO BID 09/21/21 09/21/21 History Allergies Allergy/AdvReac Type Severity Reaction Status Date / Time No Known Allergies Allergy Verified 09/17/21 14:59 Exam Vital signs and Labs for Last 24 Hours: Temp Pulse Resp BP Pulse Ox 99.3 F 81 16 117/70 95 09/21/21 08:00 09/21/21 08:00 09/21/21 08:00 09/21/21 08:00 09/21/21 08:00 Laboratory Results - last 24 hr 09/20/21 14:27: WBC 17.2 H, RBC 4.58, Hgb 10.5 L, Hct 34.8 L, MCV 76.0 L, MCH 22.9 L, MCHC 30.1 L, RDW 18.6 H, Plt Count 682 H, MPV 8.0, Neut % (Auto) 89.4 H, Lymph % (Auto) 6.5 L, Jackson % (Auto) 3.7, Eos % (Auto) 0.2, Baso % (Auto) 0.3, Neut # (Auto) 15.3 H, Lymph # (Auto) 1
--- NOTE | 2021-09-21 12:40 | US_ITS ---
PROCEDURE: US BIOPSY BREAST RT CLINICAL INDICATION: Right breast mass COMPARISON: No exams were available for comparison FINDINGS: Following time-out procedure and obtaining informed consent under aseptic conditions and local anesthesia with 1 percent buffered lidocaine, F fine needle aspiration was performed of the suspicious mass at 11 o'clock. Following this 18 gauge core biopsies x3 were obtained of the mass. The patient tolerated the procedure well without evidence of immediate complications. Pathology: Invasive ductal carcinoma. IMPRESSION: Uneventful and successful ultrasound-guided biopsy of the right breast mass at 11 o'clock demonstrating invasive ductal carcinoma. Recommend bilateral diagnostic mammogram to assure there are no other lesions. Dictated by: Montana Diaz MD 09/25/2021 13:30 Montana Diaz MD in [place] 09/25/2021 13:30
[2021-09-21 16:00] VITALS: BP 101/55; PULSE 75; PULSE 79; RESP 16; TEMP 37.5; O2SAT 93
--- NOTE | 2021-09-21 18:38 | PC.NURSE ---
STILL NO BED AVAILABLE. UPDATE GIVEN TO [facility]. PT HAS REQUESTED BHARAT MEDICATION X2 AND WAS GIVEN MORPHINE 2MG PER MAR WITH GOOD EFFECTIVENESS.
[2021-09-21 20:00] VITALS: BP 111/65; PULSE 78; PULSE 80; RESP 16; TEMP 37.4; O2SAT 91
[2021-09-22] VITALS (22 sets, daily range): BP systolic 86–117; BP diastolic 50–69; PULSE 64–90; RESP 12–20; TEMP 36.6–38; O2SAT 91–99; BMI 21.4
--- NOTE | 2021-09-22 03:13 | PC.NURSE ---
A&OX4. TOLERATING RA WELL. PT C/O ABD PAIN AT BEGINNING OF SHIFT, TX WITH MORPHINE PER DEC. PT STATED THIS HELPED HER PAIN VERY WELL. HAS HAD NO C/O PAIN SINCE THEN, AND HAS BEEN SLEEPING MAJORITY OF SHIFT. DAUGHTER AT BEDSIDE. TOLERATING NPO DIET SINCE MIDNIGHT. HAVE HAD MULTIPLE CALLS FROM [facility] AND FOR UPDATES ON PT, NO NEW BEDS AT THIS TIME. VSS WILL CONTINUE TO MONITOR.
--- NOTE | 2021-09-22 06:27 | HMH.ACPN2 ---
Internal Medicine - PN: Subj *Date: 09/22/21 *Time: 08:30 Interval history: Ms. Maciel did well overnight. Remained afebrile. Tolerated her breast biopsy yesterday well. Denies significant pain at site of needle biopsy in her right breast. N.p.o. at midnight for planned urologic intervention today. Daughter at bedside. Patient updated of plan and current status. Questions answered. Exam Vital signs and Labs for Last 24 Hours: Temp Pulse Resp BP Pulse Ox 99.8 F H 82 19 110/60 92 L 09/22/21 04:00 09/22/21 04:00 09/22/21 04:00 09/22/21 04:00 09/22/21 04:00 Laboratory Results - last 24 hr 09/21/21 05:54: WBC 15.6 H, RBC 4.18 L, Hgb 9.6 L, Hct 32.3 L, MCV 77.4 L, MCH 23.0 L, MCHC 29.7 L, RDW 19.3 H, Plt Count 611 H, MPV 8.2, Neut % (Auto) 84.8 H, Lymph % (Auto) 9.3 L, Roosevelt % (Auto) 5.5, Eos % (Auto) 0.2, Baso % (Auto) 0.2, Neut # (Auto) 13.2 H, Lymph # (Auto) 1.5, Roosevelt # (Auto) 0.9, Eos # (Auto) 0.0, Baso # (Auto) 0.0, Total Counted 100, Neutrophils % (Manual) 84 H, Lymphocytes % (Manual) 7 L, Monocytes % (Manual) 9, Platelet Estimate Moderate increase, RBC Morphology Normal, Hypochromasia 2+, Anisocytosis 2+, Microcytosis 2+ 09/21/21 05:54: PT 11.2, INR 0.99 09/21/21 05:54: Sodium 132 L, Potassium 3.2 L, Chloride 99, Carbon Dioxide 30, Anion Gap 6.2, BUN 12, Creatinine 1.00, Estimated Creat Clear 47, Estimated GFR 56 L, Est GFR ( Amer) 68, Glucose 110 H, Calcium 8.7, Total Bilirubin 0.3, AST 21 D, ALT 10 L D, Alkaline Phosphatase 111, Total Protein 6.4, Albumin 3.0 L D, Globulin 3.4 H, Albumin/Globulin Ratio 0.9 L 09/21/21 05:54: Magnesium 1.9 I & O for Last 24 hours: Intake & Output 09/19/21 09/20/21 09/21/21 09/22/21 23:59 23:59 23:59 23:59 Intake Total 120 / 120 Output Total 0 / 0 Balance 120 / 120 Weight 50.802 kg 54.975 kg - Constitutional no acute distress - *Routine HEENT Exam Head: Present: normocephalic Eye: Present: EOMI, PERRL ENT: Present: mucous membranes moist - *Routine Neck Exam Present: supple. Absent: lymphadenopathy - Routine Chest/Breast/Axilla Exam Comments: Needle biopsy site on right breast clean dry and intact, no bleeding. - *Routine Respiratory Exam Present: crackles (In right base, no wheeze or rhonchi. Fair air movement bilaterally) - *Routine Cardiovascular Exam Present: RRR - *Routine Abdominal Exam Present: soft, normoactive bowel sounds, tenderness (And right hemiabdomen. CVA tenderness on right but not left) - *Routine Extremities Exam Absent: cyanosis, clubbing, edema - *Routine Skin Exam Present: warm. Absent: rash - *Routine Neurological Exam Present: alert, oriented X3 - Routine Psychiatric Exam Comments: Flat affect Assessment and Plan (1) Bilateral pulmonary embolism Status: Acute Category: Medical Code(s): I26.99 - Other pulmonary embolism without acute cor pulmonale (2) Hydronephrosis Status: Acute Category: Medical Code(s): N13.30 - Unspecified hydronephrosis (3) Adenopathy Status: Acute Category: Medical Code(s): R59.9 - Enlarged lymph nodes, unspecified (4) Cardiomyopathy Status: Acute Category: Medical Code(s): I42.9 - Cardiomyopathy, unspecified (5) Colonic mass Status: Acute Category: Medical Code(s): K63.89 - Other specified diseases of intestine (6) Liver masses Status: Acute Category: Medical Code(s): R16.0 - Hepatomegaly, not elsewhere classified (7) Mass of right lung Status: Acute Category: Medical Code(s): R91.8 - Other nonspecific abnormal finding of lung field (8) Breast mass, right Status: Acute Qualifiers: Breast mass location: unspecified quadrant Qualified Code(s): N63.10 - Unspecified lump in the right breast, unspecified quadrant Category: Medical Code(s): N63.10 - Unspecified lump in the right breast, unspecified quadrant - Assessment and plan all Dx Assessment and Plan for all problems:: 61-year-old fe
--- NOTE | 2021-09-22 07:09 | HMH.GSPN ---
Subjective Patient reports: no new complaints Progress Note: A&P (1) Bilateral pulmonary embolism Status: Acute (2) Hydronephrosis Status: Acute (3) Adenopathy Status: Acute (4) Cardiomyopathy Status: Acute (5) Colonic mass Status: Acute Assessment and plan: May require colonoscopy in near future; however, will await today's urologic management and likely await pathology from recent breast biopsy. (6) Liver masses Status: Acute (7) Mass of right lung Status: Acute (8) Breast mass, right Status: Acute Assessment and plan: Ultrasound-guided biopsy completed yesterday. Final pathology pending. Exam Vital signs and Labs for Last 24 Hours: Temp Pulse Resp BP Pulse Ox 99.8 F H 82 19 110/60 92 L 09/22/21 04:00 09/22/21 04:00 09/22/21 04:00 09/22/21 04:00 09/22/21 04:00 Laboratory Results - last 24 hr 09/21/21 05:54: Total Counted 100, Neutrophils % (Manual) 84 H, Lymphocytes % (Manual) 7 L, Monocytes % (Manual) 9, Platelet Estimate Moderate increase, RBC Morphology Normal, Hypochromasia 2+, Anisocytosis 2+, Microcytosis 2+ 09/21/21 05:54: PT 11.2, INR 0.99 09/21/21 05:54: Sodium 132 L, Potassium 3.2 L, Chloride 99, Carbon Dioxide 30, Anion Gap 6.2, BUN 12, Creatinine 1.00, Estimated Creat Clear 47, Estimated GFR 56 L, Est GFR ( Amer) 68, Glucose 110 H, Calcium 8.7, Total Bilirubin 0.3, AST 21 D, ALT 10 L D, Alkaline Phosphatase 111, Total Protein 6.4, Albumin 3.0 L D, Globulin 3.4 H, Albumin/Globulin Ratio 0.9 L 09/21/21 05:54: Magnesium 1.9 I & O for Last 24 hours: Intake & Output 09/19/21 09/20/21 09/21/21 09/22/21 11:59 11:59 11:59 11:59 Intake Total 120 / 120 Output Total 0 / 0 Balance 0 / 0 120 / 120 Weight 112 lb 121 lb 3.2 oz Narrative: Right breast biopsy completed yesterday via ultrasound guidance. Pathology pending. - Constitutional no acute distress - Routine Chest/Breast/Axilla Exam Comments: Right breast biopsy site without sign of bleeding/infection. - *Routine Respiratory Exam Absent: respiratory distress - *Routine Cardiovascular Exam Present: RRR
[2021-09-22 07:21] LABS: Chloride 98 mmol/L (98-107); Potassium 3.9 mmoL/L (3.5-5.1); Sodium 133 mmol/L (136-145)
[2021-09-22 07:23] LABS: Alanine Aminotransferase 11 U/L (12-78); Aspartate Amino Transferase 25 U/L (14-36); Blood Urea Nitrogen 13 mg/dl (7-17); Creatinine Clearance Estimated 51 mL/min (50-200); Estimated Glomerular Filt Rate 56 ml/min (>60); GFR (African American) 68 ML/MIN (>60)
[2021-09-22 07:24] LABS: Albumin Level 3.2 g/dl (3.5-5.0); Alkaline Phosphatase 106 U/L (38-126); Anion Gap 9.9 mEq/L (5-15); Bilirubin,Total 0.4 mg/dl (0.2-1.3); Calcium 8.7 mg/dl (8.4-10.2); Carbon Dioxide 29 mmol/L (22.0-30.0); Globulin 3.3 g/dL (1.3-3.2); Glucose 124 mg/dl (74-100); Magnesium 1.8 mg/dl (1.6-2.3); Total Protein,Serum 6.5 g/dl (6.3-8.2)
--- NOTE | 2021-09-22 07:51 | HMH.PNCARD ---
Subjective Date: 09/22/21 Time: 07:51 Principal diagnosis: Metastatic cancer, Cardiomyopathy Interval history: 61 yo WF in bed in NAD. Appears more upbeat today. Right sided abd pain has improved. Bilat DVT noted in LE's Repeat echo with definity not officially read at this time but no evidence of LV thrombus noted. Exam Vital signs and Labs for Last 24 Hours: Temp Pulse Resp BP Pulse Ox 99.8 F H 82 19 110/60 92 L 09/22/21 04:00 09/22/21 04:00 09/22/21 04:00 09/22/21 04:00 09/22/21 04:00 Laboratory Results - last 24 hr 09/21/21 05:54: Total Counted 100, Neutrophils % (Manual) 84 H, Lymphocytes % (Manual) 7 L, Monocytes % (Manual) 9, Platelet Estimate Moderate increase, RBC Morphology Normal, Hypochromasia 2+, Anisocytosis 2+, Microcytosis 2+ 09/21/21 05:54: Magnesium 1.9 09/22/21 06:37: Sodium 133 L, Potassium 3.9 D, Chloride 98, Carbon Dioxide 29, Anion Gap 9.9, BUN 13, Creatinine 1.00, Estimated Creat Clear 51, Estimated GFR 56 L, Est GFR ( Amer) 68, Glucose 124 H, Calcium 8.7, Magnesium 1.8, Total Bilirubin 0.4, AST 25, ALT 11 L, Alkaline Phosphatase 106, Total Protein 6.5, Albumin 3.2 L, Globulin 3.3 H, Albumin/Globulin Ratio 1.0 L I & O for Last 24 hours: Intake & Output 09/19/21 09/20/21 09/21/21 09/22/21 11:59 11:59 11:59 11:59 Intake Total 120 / 120 Output Total 0 / 0 Balance 0 / 0 120 / 120 Weight 112 lb 121 lb 3.2 oz - Constitutional no acute distress - *Routine HEENT Exam Head: Present: normocephalic Eye: Present: EOMI, PERRL ENT: Present: mucous membranes moist - *Routine Neck Exam Present: supple. Absent: lymphadenopathy - *Routine Respiratory Exam Present: CTA bilaterally - *Routine Cardiovascular Exam Present: RRR - *Routine Abdominal Exam Present: soft, normoactive bowel sounds. Absent: tenderness - *Routine Extremities Exam Absent: cyanosis, clubbing, edema - *Routine Skin Exam Present: warm. Absent: rash - *Routine Neurological Exam Present: alert, oriented X3 Progress Note: A&P (1) Bilateral pulmonary embolism Status: Acute (2) Hydronephrosis Status: Acute (3) Adenopathy Status: Acute (4) Cardiomyopathy Status: Acute (5) Colonic mass Status: Acute (6) Liver masses Status: Acute (7) Mass of right lung Status: Acute (8) Breast mass, right Status: Acute Assessment and Plan for All Diagnoses:: 1. PE's with bilat LE DVT's, on lovenox while biopsies being performed then will switch to oral anticoagulation. Also having urologic procedure today. 2. CM, on ARB and BB therapy. Use lasix PRN. 3. Suspected met CA with nodules in right breast, lungs, liver and colon. Work up in progress. 4. Tobacco use, stopped 6 days ago
--- NOTE | 2021-09-22 07:59 | PC.NURSE ---
Spoke to Adriana RN in pre-op to let her know pt has refused to sign consent until she gets a more in-depth explanation of today's procedure from MD Mosqueda. Adriana confirmed that she would make MD Mosqueda aware.
[2021-09-22 08:01] LABS: Basophils % 0.2 % (0.1-2.0); Eosinophils % 0.1 % (0.1-12.0); Hematocrit 33.6 % (37.0-47.0); Hemoglobin 9.7 g/dL (12.2-16.2); Lymphocytes # 1.3 K/mm3 (0.7-4.5); Lymphocytes % 7.6 % (10-50); Mean Corpuscular HGB Conc 28.8 g/dL (31.8-35.4); Mean Corpuscular Hemoglobin 22.7 pg (27.0-31.2); Mean Corpuscular Volume 78.7 fl (81-99); Mean Platelet Volume 7.1 fl (7.4-10.4); Monocytes # 0.9 K/mm3 (0.1-1.0); Monocytes % 5.6 % (1.7-9.3); Neutrophils # 14.4 K/mm3 (1.8-7.8); Neutrophils % 86.5 % (37.0-80.0); Platelet Count 665 K/mm3 (142-424); Red Blood Count 4.26 M/mm3 (4.20-5.40); Red Cell Distribution Width 19.1 % (11.5-17.5); White Blood Count 16.6 K/mm3 (4.8-10.8)
[2021-09-22 08:17] LABS: MANUAL DIFFERENTIAL MANUAL DIFFERENTIAL (MANUAL DIFF)
[2021-09-22 09:16] LABS: Anisocytosis 1+; Hypochromasia 1+; Lymphocytes % 4 % (10-50); Microcytosis 1+; Monocytes % 4 % (2-9); Neutrophils % 92 % (42-76); Platelet Estimate Normal; Total Cells Counted 100
--- NOTE | 2021-09-22 11:00 | XR_ITS ---
PROCEDURE: XR KUB CLINICAL INDICATION: RT STENT PLACEMENT COMPARISON: No exams were available for comparison FINDINGS: Fluoroscopy time: 1.10 minute. Two images are submitted with C-arm showing interval placement of a right ureteral stent which appears to be in good position. IMPRESSION: Status post right ureteral stent placement with fluoroscopic assistance Dictated by: Montana Diaz MD 09/22/2021 14:04 Montana Diaz MD in [place] 09/22/2021 14:04
--- NOTE | 2021-09-22 11:27 | HMH.ANESCL ---
[facility] Anesthesia Checklist - Structural Data Admitted From: Inpatient Planned Operative Procedure/s: ureteroscopy Consent for Planned Operative Procedure(s) Verified: Yes - Airway Assessment C-Spine Mobility Assessed: Yes TMJ Mobility Assessed: Yes Dentition: Poor Dentition - Neurological Assessment Level of Consciousness: Awake, Alert, Appropriate - Anesthesia Plan Anesthesia Risk discussed: Yes Anesthesia Plan: Verified ASA Class: III Anesthesia Type: General [facility] History I have reviewed the patient's past medical history: Yes Medical History: Reports:: Anxiety, Gastroesophageal Reflux Disease(GERD) Denies:: Cancer, Diabetes Mellitus Type 1, Diabetes Mellitus Type 2, MRSA *Have you ever received a pneumonia vaccine?: No *Have you received a flu vaccine this season?: No Other Medical History: Reports: Anemia Anesthesia experience/problems:: none Amputation: No Fractures: No - *Social History Smoking Status: Current every day smoker Tobacco Type: cigarettes # Packs/Day (cigarettes): 1 #Yrs smoked (if former smoker): 30 Smoking End Date: 09/16/21 Alcohol Intake: never Substance Use Type: denies use *Occupational Status:: employed Housing: house Household Members: children *Travel in the last 8 weeks: None - Psychiatric History Pschychiatric History:: Reports:: Anxiety Family Hx:: Cancer, Stroke
--- NOTE | 2021-09-22 11:31 | PC.NURSE ---
Spoke to [facility], no bed available at this time.
--- NOTE | 2021-09-22 12:03 | P.PN_ITS ---
[facility] Anesthesia Record Part I Intake, IV Amount: 1,000 Estimated blood loss (mL): 0 Urine output (mL): 0 Blood Pressure: 94/69 SaO2: 99 Pulse Rate: 78 Respiratory Rate: 12 Temperature: 97.9 F Patient is:: Awake, Stable Stable to PACU at:: 12:00
--- NOTE | 2021-09-22 13:23 | P.OP_ITS ---
Date of procedure: 09/22/21 Pre-op Diagnosis:: Right hydronephrosis, right ureteral stone Post-op Diagnosis:: Right hydronephrosis secondary to extrinsic compression of the right ureter, no evidence of stones. Procedure performed:: Right ureteroscopy, right stent placement Surgeon:: Gino Mosqueda MD CAREER SERVICES COORDINATOR:: Xiang Costello Anesthesia: LMA Estimated blood loss (mL): 0 Clinical Note:: 61-year-old white female with right-sided hydronephrosis and suspected ureteral calculi in the mid ureter. She has also been diagnosed with breast mass, colon mass, lung mass, pulmonary emboli and lymphadenopathy. Breast biopsy was performed yesterday. Operative findings:: Right ureteroscopy revealed a narrowed mid ureter without evidence of stone or mass. Operative note:: Patient taken to the operating room after informed consent was obtained. She is placed on the operating table in general anesthesia administered. She was on preoperative antibiotics. Sequential compressions devices were not placed due to DVT. She is on Lovenox. She was placed into the dorsal lithotomy position and prepped and draped in the standard surgical fashion. 22 Ken passed into the urethral meatus and into the bladder without difficulty. The bladder was examined in a systematic fashion. There is no evidence of mucosal normalities, stones, diverticula or trabeculation. The ureteral orifices in their normal anatomic position. Clear efflux of urine was noted from the left but no efflux of urine was noted from the right. A guidewire passed into the right ureteral orifice and it passed into the renal pelvis without difficulty. Fluoroscopy revealed a couple of calcifications in the ureteral segment just below the pelvic brim but the wire went up without evidence of obstruction. Surprisingly there was not a lot of urine coming from the right ureteral orifice after the wire was placed. The distal ureter appeared a bit stenotic so it was dilated with the UroMax balloon dilator to 12 darcie for 2 minutes. The balloon then deflated and our semirigid ureteroscope passed into the bladder and into the right ureter. It passed to the mid ureter where ureter was a bit stenotic but we were able to push the scope on up proximally. There is a segment of about 4 inches that appeared compressed from outside the ureter. There were no intrinsic abnormalities. The ureter did open up again in the proximal ureter. The ureteroscope then removed and there was some resistance to removal of the scope due to the narrowing of the ureter. The cystoscope was replaced and the guidewire backloaded over the wire and a 6 x 26 [place]ian stent then passed over the guidewire and under fluoroscopy the guidewire and string were removed. A good curl was noted proximally and distally of the ureteral stent. Surprisingly there was still not a lot of urine output through the stent. The bladder emptied the scope removed patient tolerated procedure well there are no complications. Condition: stable Disposition: PACU Specimens:: None Complications:: None
--- NOTE | 2021-09-22 17:38 | PC.NURSE ---
Pt has done well this shift. Pt has been hypotensive, but asymptomatic this shift. No c/o pain, just urine urgency and frequency. Lungs CTA. Bowel sounds active, no BM noted this shift. No other acute changes or complaints, will continue to monitor.
[2021-09-23] VITALS: PULSE 70
[2021-09-23 04:00] VITALS: BP 117/68; PULSE 70; PULSE 75; RESP 18; TEMP 36.5; O2SAT 96
[2021-09-23 05:18] VITALS: BMI 21.2
--- NOTE | 2021-09-23 05:33 | PC.NURSE ---
pt has rested well this shift, no complaints of pain, patient able to ambulate to BR without difficulty, remains on room air with O2 sats 94-96%
--- NOTE | 2021-09-23 06:29 | PC.NURSE ---
pt did have bowel movement this morning
[2021-09-23 06:32] LABS: Lymphocytes # 0.8 K/mm3 (0.7-4.5); Lymphocytes % 4.5 % (10-50); Mean Corpuscular HGB Conc 28.6 g/dL (31.8-35.4); Mean Corpuscular Hemoglobin 22.4 pg (27.0-31.2); Mean Corpuscular Volume 78.4 fl (81-99); Mean Platelet Volume 7.6 fl (7.4-10.4); Monocytes # 0.8 K/mm3 (0.1-1.0); Monocytes % 4.3 % (1.7-9.3); Neutrophils # 16.5 K/mm3 (1.8-7.8); Neutrophils % 91.1 % (37.0-80.0); Platelet Count 590 K/mm3 (142-424); Red Blood Count 3.68 M/mm3 (4.20-5.40); Red Cell Distribution Width 18.8 % (11.5-17.5); White Blood Count 18.1 K/mm3 (4.8-10.8)
[2021-09-23 06:33] LABS: Hematocrit 28.9 % (37.0-47.0)
[2021-09-23 06:34] LABS: MANUAL DIFFERENTIAL MANUAL DIFFERENTIAL (MANUAL DIFF)
[2021-09-23 06:55] LABS: Chloride 104 mmol/L (98-107); Potassium 4.1 mmoL/L (3.5-5.1); Sodium 138 mmol/L (136-145)
[2021-09-23 06:57] LABS: Blood Urea Nitrogen 11 mg/dl (7-17); Creatinine Clearance Estimated 51 mL/min (50-200); Estimated Glomerular Filt Rate 102 ml/min (>60); GFR (African American) 123 ML/MIN (>60)
[2021-09-23 06:58] LABS: Alanine Aminotransferase 17 U/L (12-78); Albumin Level 2.9 g/dl (3.5-5.0); Albumin/Globulin Ratio 0.9 (1.1-1.8); Alkaline Phosphatase 102 U/L (38-126); Anion Gap 10.1 mEq/L (5-15); Aspartate Amino Transferase 38 U/L (14-36); Calcium 8.8 mg/dl (8.4-10.2); Carbon Dioxide 28 mmol/L (22.0-30.0); Globulin 3.1 g/dL (1.3-3.2); Glucose 137 mg/dl (74-100); Magnesium 2.1 mg/dl (1.6-2.3)
[2021-09-23 06:59] LABS: Bilirubin,Total < 0.1 mg/dl (0.2-1.3)
--- NOTE | 2021-09-23 07:24 | HMH.DCSUM ---
General - General Admission date:: 09/20/21 Discharge date: 09/23/21 HPI HPI: 61-year-old white female, heavy smoker for many years, who does not routinely go to the doctor and has not had any routine cancer screenings over the past several years, has felt worse over the past 3 to 4 weeks with increasing right-sided pain, intermittent abdominal complaints of nausea, vomiting, burping and alternating diarrhea and constipation along with some unintentional weight loss. She saw her primary physician in [place] several months ago, the diagnosis of IBS was entertained and she felt better with some supportive/symptomatic treatment. However she worsened and went to the emergency department in [facility] where she reports no films were done and she was diagnosed with gastritis and discharged. She felt more symptoms and came to the [place] [facility] on Saturday, of this week, where CT scanning was done which revealed evidence of some masses in kidney stones, she was also found to have lowered ejection fraction on an outpatient echocardiogram and she was started on beta-blockers and angiotensin receptor blockers. Cardiology appointment was set up as well as several appointments for general surgery and urology given the suspicious appearance of masses on her CT scans. She continued to feel poorly and came back to the emergency department yesterday. Repeat CT scanning showed progression of ureteral mass/blockage with some possible stones and hydronephrosis. She also has the new appearance of PE on CTA, and pleural effusion that appears to be malignant. Along with multiple areas in the abdomen, colon and even the uterus consistent with widely metastatic disease. She was admitted to hospital for further evaluation, specialty consultation and treatment of her pain and IV fluids. Hospital Course Hospital Course: 61-year-old female with what appears to be metastatic cancer of unknown origin. Admitted for right-sided hydronephrosis, pyelonephritis, PEs with DVTs, breast lesion, and colon lesion. Work-up as follows: Metastatic neoplastic process -Unclear origin. Easiest lesion to biopsy is right breast. Needle biopsy performed, pathology pending. -Discussed case with surgery, will hold on colonoscopy at this time. Pursue as an outpatient pending pathology from breast lesion. -Concern for lesion obstructing/compressing externally on right ureter. Urology addressed with stent placement -Continue antibiotics for empiric course of 7 days. Patient symptoms overall resolved as far as pain. No fever. White cell count still somewhat elevated. Transitioning to cefdinir to complete course. Right-sided hydronephrosis Ureteral obstruction -Unclear etiology of nephrolithiasis versus external compression. Cystoscopy and ureteroscopy performed by urology. Stent placed with no noted stones in the ureter. Concern for extrinsic compression. Obstruction resolved with stent placement. We will plan for close follow-up with urology in the coming week. -Continue antibiotics at this time as above Cardiomyopathy -Echocardiogram obtained, read as follows: 1. Limited echocardiogram with Definity contrast was done to evaluate left ventricular systolic function and exclude presence of thrombus. 2. Normal left ventricular size, visually estimated ejection fraction approximately 45%, there is discrete wall motion abnormality involving the mid to distal septum and apical wall. There is no left ventricular thrombus seen. 3. The right atrium and right ventricle appears to be normal size and contractility there is no thrombus seen in right ventricle. -Medically managed at this time, cardiology consulted, appreciate their recs. We will continue beta-rosibel and TABITHA inhibitor at discharge. DVTs PEs -Diagnosed on admission. Treated with Lovenox during admission. Will transition to oral Xarelto at time of discharge. Patient will need a minimum of 3 months of therapy however in light
[2021-09-23 08:00] VITALS: BP 101/54; PULSE 70; PULSE 72; RESP 14; TEMP 36.7; O2SAT 96
[2021-09-23 08:22] LABS: Hypochromasia 2+; Lymphocytes % 5 % (10-50); Monocytes % 3 % (2-9); Neutrophils % 92 % (42-76); Platelet Estimate Moderate Increase; Total Cells Counted 100
[2021-09-23 08:30] LABS: Hemoglobin 8.3 g/dL (12.2-16.2)
--- NOTE | 2021-09-23 10:39 | HMH.PHAINT ---
DISCHARGE COUNSELING COMPLETED ON PATIENT. NEW PRESCRIPTIONS INCLUDE XARELTO, METOPROLOL, SENNA/DOCUSATE, AND CEFDINIR. PATIENT IS TO CONTINUE ALL OTHER MEDICATIONS WITH THE EXCEPTION OF CARVEDILOL. NEW PRESCRIPTIONS WERE SENT TO CLINIC PHARMACY. SAMPLES OR XARELTO WERE PROVIDED BY DR. LION. ALL QUESTIONS AND CONCERNS BY PATIENT WERE ADDRESSED. -MICKIE KING, OSITOD
[2021-09-23 12:00] VITALS: PULSE 70
--- NOTE | 2021-09-25 13:13 | HMH.ANESII ---
[facility] Anesthesia Record Part II Discharge Time: 12:30 Destination: Second Floor PACU nurse assessment reviewed?: Yes Patient Condition:: Good Anesthesia Complications:: None Swallowing reflex intact?: Yes Cyanosis?: No Blood Pressure: 104/63 Pulse Rate: 85 Temperature: 98 F Mental Status: Alert & Oriented Pain level:: 0 Nausea and/or vomitting:: None Intake, IV Amount: 0
[2021-09-25 13:14] VITALS: BP 104/63; PULSE 85; TEMP 36.6
== END 2021-09-23 12:20 | disposition home or self-care (01) | DRG 988 ==
LOC: ER 20:05 → 2ND 21:23
PROVIDERS: Internal Medicine Adolescent Medicine; Physician Assistant; Urology; Admitting Provider Internal Medicine Adolescent Medicine; Emergency Provider Emergency Medicine; PCP Family Medicine; Visit Provider Internal Medicine Adolescent Medicine
PROC: 0T768DZ Dilation of Right Ureter with Intraluminal Device, Via Natural or Artificial Opening Endoscopic (ICD-10-PCS; CPT 52352; principal; 2021-09-22 09:45)
DX: I26.99 Other pulmonary embolism without acute cor pulmonale (principal); I42.0 Dilated cardiomyopathy; I82.451 Acute embolism and thrombosis of right peroneal vein; N13.6 Pyonephrosis; C78.02 Secondary malignant neoplasm of left lung; C50.911 Malignant neoplasm of unspecified site of right female breast; C78.01 Secondary malignant neoplasm of right lung; C78.5 Secondary malignant neoplasm of large intestine and rectum; C78.7 Secondary malignant neoplasm of liver and intrahepatic bile duct; Z20.822 Contact with and (suspected) exposure to COVID-19; K21.9 Gastro-esophageal reflux disease without esophagitis; F41.9 Anxiety disorder, unspecified; F17.210 Nicotine dependence, cigarettes, uncomplicated; E87.6 Hypokalemia; K63.89 Other specified diseases of intestine; D63.0 Anemia in neoplastic disease; C80.1 Malignant (primary) neoplasm, unspecified
CPT/HCPCS: 52332; 19100; 19083; 36415; 71275; 74018; 74177; 76000; 80053; 81001; 82378; 83605; 83690; 83735; 84484; 85007; 85025; 85610; 87086; 93308; 93970; 96372; 96374; 96375; 99284; C1769; C2617; C9803; J2405; Q9957; Q9967; U0003; U0005

== ENCOUNTER 2021-09-26 13:20 | Emergency (ER) | payer BC, SELFPAY ==
[2021-09-26 15:29] VITALS: BP 140/91; PULSE 78; RESP 16; TEMP 36.4; O2SAT 100; BMI 21.7
--- NOTE | 2021-09-26 15:35 | HMH.EDGENADL ---
ED Disposition Clinical Impression: Rectal bleeding, External hemorrhoids, Thrombocytosis Anemia Qualifiers: Anemia type: unspecified type Qualified Code(s): D64.9 - Anemia, unspecified Disposition: Home, Self-Care Condition on Discharge: Good Additional Instructions: Return to the emergency department if any heavy rectal bleeding. Call Dr. Pineda tomorrow for follow-up. Referrals: Albert Pineda MD [Primary Care Provider] - - Critical Care Critical Care Time: No Attestation: On 09/26/21, the high probability of a clinically significant, sudden or life threatening deterioration of the following system(s) required my full and direct attention, intervention and personal management. The time I documented below is in addition to time spent performing reported procedures but includes the following listed in this critical care notation. Medical Decision Making - Jonathan Inquiry Pt receiving controlled substance: No Vital Signs: 09/26/21 15:29 Temperature 97.5 F L Temperature Source Oral Pulse Rate [Left Radial] 78 Respiratory Rate 16 Blood Pressure [Right Arm] 140/91 H Blood Pressure Mean [Right Arm] 107 02 Sat by Pulse Oximetry 100 Oxygen Delivery Method Room Air - Lab Data Lab Results 09/26/21 15:45: Stool Occult Blood Positive A 09/26/21 15:55: WBC 13.2 H, RBC 4.39, Hgb 9.9 L, Hct 34.1 L, MCV 77.8 L, MCH 22.6 L, MCHC 29.0 L, RDW 19.1 H, Plt Count 936 H* D, MPV 6.7 L, Neut % (Auto) 80.0, Lymph % (Auto) 14.8, [place] % (Auto) 4.3, Eos % (Auto) 0.8, Baso % (Auto) 0.1, Neut # (Auto) 10.5 H, Lymph # (Auto) 2.0, [place] # (Auto) 0.6, Eos # (Auto) 0.1, Baso # (Auto) 0.0 09/26/21 15:55: Sodium 137, Potassium 3.3 L, Chloride 100, Carbon Dioxide 30, Anion Gap 10.3, BUN 5 L, Creatinine 0.60, Estimated Creat Clear 49, Estimated GFR 102, Est GFR ( Amer) 123, Glucose 127 H, Calcium 9.1, Total Bilirubin 0.3, AST 50 H, ALT 44, Alkaline Phosphatase 116, Total Protein 7.1, Albumin 3.6, Globulin 3.5 H, Albumin/Globulin Ratio 1.0 L Result diagrams: 09/26/21 15:55 09/26/21 15:55 - Physician Consults Physician Consulted: Claire Time: 17:04 Reason -: Pt condition Comment/Response: Hemodynamically stable with stable hemoglobin. Discharge patient, she is to call Dr. Pineda tomorrow, return if heavy rectal bleeding General Adult HPI - General Stated complaint: rectal bleeding Time Seen by Provider: 09/26/21 15:35 - History of Present Illness HPI narrative: The patient complains of rectal bleeding. She noticed a tiny amount yesterday with a bowel movement and again today. No rectal pain. No abdominal pain. No hematemesis. She does have external hemorrhoids. Her daughter is a nurse. They called the primary care provider, Dr. Pineda, today and he said that they could come to the office for her to be seen in 315 or go straight to the emergency room to have her blood counts rechecked to make sure she is not losing a significant mount of blood. She has a significant history of being seen by me in this emergency department on 09/17/2021 and being discovered to have multiple malignancies as well as ureteral calculi. Masses were of her right colon, breast, lungs, liver. Anemia with hemoglobin 7.5. She was noted on rectal examination at that time by me to have external hemorrhoids with a small amount of blood, although her stool occult blood was negative. She was admitted 09/17/2021 through 09/18/2021. Since that admission, she has also been readmitted 09/20/2021 through 09/23/2021 in edition discovered to have bilateral pulmonary emboli and was started on Xarelto. She had a ureteral stent placed and no longer has right flank pain. She says she is not in any pain at present. - Related Data Home Medications Medication Instructions Recorded Confirmed Pantoprazole Sodium [Protonix 40mg 40 mg PO DAILY 09/17/21 09/21/21 tablet] Irbesartan [Avapro 75mg 75 mg PO DAILY 09/21/21 09/21/21 tablet] Previous Rx's Medi
[2021-09-26 16:15] LABS: Occult Blood,Stool Positive (Negative)
[2021-09-26 16:15] LABS: Basophils % 0.1 % (0.1-2.0); Eosinophils # 0.1 K/mm3 (0.0-0.4); Eosinophils % 0.8 % (0.1-12.0); Hematocrit 34.1 % (37.0-47.0); Hemoglobin 9.9 g/dL (12.2-16.2); Lymphocytes % 14.8 % (10-50); Mean Corpuscular Hemoglobin 22.6 pg (27.0-31.2); Mean Corpuscular Volume 77.8 fl (81-99); Mean Platelet Volume 6.7 fl (7.4-10.4); Monocytes # 0.6 K/mm3 (0.1-1.0); Monocytes % 4.3 % (1.7-9.3); Neutrophils # 10.5 K/mm3 (1.8-7.8); Platelet Count 936 K/mm3 (142-424); Red Blood Count 4.39 M/mm3 (4.20-5.40); Red Cell Distribution Width 19.1 % (11.5-17.5); White Blood Count 13.2 K/mm3 (4.8-10.8)
[2021-09-26 16:20] LABS: Alanine Aminotransferase 44 U/L (12-78); Albumin Level 3.6 g/dl (3.5-5.0); Alkaline Phosphatase 116 U/L (38-126); Anion Gap 10.3 mEq/L (5-15); Aspartate Amino Transferase 50 U/L (14-36); Bilirubin,Total 0.3 mg/dl (0.2-1.3); Blood Urea Nitrogen 5 mg/dl (7-17); Calcium 9.1 mg/dl (8.4-10.2); Carbon Dioxide 30 mmol/L (22.0-30.0); Chloride 100 mmol/L (98-107); Creatinine Clearance Estimated 49 mL/min (50-200); Estimated Glomerular Filt Rate 102 ml/min (>60); GFR (African American) 123 ML/MIN (>60); Globulin 3.5 g/dL (1.3-3.2); Glucose 127 mg/dl (74-100); Potassium 3.3 mmoL/L (3.5-5.1); Sodium 137 mmol/L (136-145); Total Protein,Serum 7.1 g/dl (6.3-8.2)
[2021-09-26 17:15] VITALS: BP 145/86; PULSE 76; RESP 18; TEMP 36.4; O2SAT 98
== END 2021-09-26 17:15 | disposition home or self-care (01) ==
PROVIDERS: Emergency Provider Emergency Medicine; PCP Internal Medicine Adolescent Medicine
DX: K64.4 Residual hemorrhoidal skin tags (principal); D75.839 Thrombocytosis, unspecified; D64.9 Anemia, unspecified; F41.9 Anxiety disorder, unspecified; K21.9 Gastro-esophageal reflux disease without esophagitis; F17.210 Nicotine dependence, cigarettes, uncomplicated
CPT/HCPCS: 80053; 82272; 85025; 99282; G0328

== ENCOUNTER → 2021-10-05 10:14 | Outpatient (CLI) | payer BC, SELFPAY ==
[2021-10-05 10:36] LABS: Basophils # 0.1 K/mm3 (0-0.2); Basophils % 0.5 % (0.1-2.0); Eosinophils # 0.1 K/mm3 (0.0-0.4); Eosinophils % 0.8 % (0.1-12.0); Lymphocytes # 2.1 K/mm3 (0.7-4.5); Lymphocytes % 16.3 % (10-50); Mean Corpuscular HGB Conc 29.6 g/dL (31.8-35.4); Mean Corpuscular Hemoglobin 22.5 pg (27.0-31.2); Mean Corpuscular Volume 76.1 fl (81-99); Mean Platelet Volume 7.5 fl (7.4-10.4); Monocytes # 0.5 K/mm3 (0.1-1.0); Monocytes % 3.7 % (1.7-9.3); Neutrophils % 78.7 % (37.0-80.0); Platelet Count 982 K/mm3 (142-424); Red Blood Count 2.63 M/mm3 (4.20-5.40); Red Cell Distribution Width 21.1 % (11.5-17.5); White Blood Count 12.8 K/mm3 (4.8-10.8)
[2021-10-05 11:13] LABS: Chloride 104 mmol/L (98-107); Potassium 4.4 mmoL/L (3.5-5.1); Sodium 138 mmol/L (136-145)
[2021-10-05 11:16] LABS: Alanine Aminotransferase 16 U/L (12-78); Albumin Level 3.4 g/dl (3.5-5.0); Albumin/Globulin Ratio 1.1 (1.1-1.8); Alkaline Phosphatase 97 U/L (38-126); Anion Gap 12.4 mEq/L (5-15); Aspartate Amino Transferase 22 U/L (14-36); Blood Urea Nitrogen 15 mg/dl (7-17); Carbon Dioxide 26 mmol/L (22.0-30.0); Estimated Glomerular Filt Rate 85 ml/min (>60); GFR (African American) 103 ML/MIN (>60); Total Protein,Serum 6.4 g/dl (6.3-8.2)
[2021-10-05 11:17] LABS: Calcium 8.9 mg/dl (8.4-10.2); Glucose 89 mg/dl (74-100)
[2021-10-05 11:20] LABS: Bilirubin,Total 0.1 mg/dl (0.2-1.3)
== END ==
PROVIDERS: Visit Provider Internal Medicine Adolescent Medicine
DX: D50.0 Iron deficiency anemia secondary to blood loss (chronic) (principal)
CPT/HCPCS: 36415; 80053; 85025

== ENCOUNTER 2021-10-05 11:36 | Inpatient (IN) | payer BC, SELFPAY ==
[2021-10-05] VITALS (19 sets, daily range): BP systolic 92–120; BP diastolic 54–72; PULSE 71–86; RESP 16–18; TEMP 36.7–37.2; O2SAT 97–100; BMI 19.5; BMI 18.6
[2021-10-05 13:20] LABS: Coronavirus 19, PCR Not Detected (NotDetected); Influenza A, PCR Not Detected (NotDetected); Influenza B, PCR Not Detected (NotDetected)
--- NOTE | 2021-10-05 13:48 | PC.NURSE ---
lab called and stated blood was ready at 1328 this was then relayed to patients primary nurse jose piper rn.
--- NOTE | 2021-10-05 14:31 | HMH.PHAINT ---
MEDICATION RECONCILIATION COMPLETE VIA PATIENT INTERVIEW AND LIST FROM MD OFFICE AND EXTERNAL PHARMACY FILL HISTORY. PATIENT STATES SHE DOES NOT TAKE THE FLUOXETINE AND SHE CUTS THE METOPROLOL ER 25 MG TABS IN HALF TO TAKE 12.5 MG DAILY AND THE IRBESARTAN 75 MG TABS IN HALF TO TAKE 37.5 MG DAILY.
--- NOTE | 2021-10-05 14:33 | P.CONPHA_ITS ---
[facility] Pharmacy VTE Monitoring - Patient Demographics Admission date: 10/05/21 Report Date: 10/05/21 Time: 14:33 Allergies/Adverse Reactions: Patient Allergies No Known Allergies Allergy (Verified 10/05/21 10:34) Height: 1.6 m Weight: 47.797 kg - VTE Risk Was VTE Risk Assessment Performed: Yes VTE Risk Level: Moderate Risk Clinical Trial Participant: No - Prophylaxis VTE Prophylaxis Ordered?: Yes Types of VTE Prophylaxis: TEDS Knee High, Pharmacological Location of Applied Device: Bilateral Lower Extremeties Pharmacologic Type: Other (HOME XARELTO ORDERED)
--- NOTE | 2021-10-05 15:00 | HMH.HP ---
*Admission Date: 10/05/21 *Chief complaint: anemia, fatigue *History of present illness: 61-year-old female with recent diagnosis of extensive tumor burden, CHF, and anemia. Was admitted recently due to flank pain from urinary obstruction. Symptoms resolved after stent placement and patient was discharged home. Followed up in the office today for close follow-up in regard to her cancer diagnosis and further management of her anemia. Complained of fatigue and having 1-2 blood-tinged stools daily. Still taking her Xarelto for bilateral pulmonary emboli diagnosed at last admission. Labs were obtained showing significant anemia with hemoglobin of 6.0. Given patient's fatigue, continued anticoagulation, and need for several units of red blood cells to be transfused, she was admitted for observation and monitoring during transfusion. Denies chest pain, shortness of breath, nausea or vomiting. Tolerating fair p.o. intake. Of note, recently saw cardiology for follow-up with improvement in her EF to 40 to 45%. 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 ER positive, CO positive, HER-2/angela negative. [facility] History I have reviewed the patient's past medical history: Yes Medical History: Reports:: Anxiety, Deep Vein Thrombosis, Gastroesophageal Reflux Disease(GERD) Denies:: Cancer, Diabetes Mellitus Type 1, Diabetes Mellitus Type 2, MRSA *Have you ever received a pneumonia vaccine?: No *Have you received a flu vaccine this season?: No Other Medical History: Reports: Anemia Other Surgeries: Yes: No Previous Surgery Amputation: No Fractures: No - *Social History Smoking Status: Former smoker Tobacco Type: cigarettes # Packs/Day (cigarettes): 1 #Yrs smoked (if former smoker): 30 Smoking End Date: 4 weeks ago Alcohol Intake: never Substance Use Type: denies use *Occupational Status:: employed Housing: house Household Members: children *Travel in the last 8 weeks: None - Psychiatric History Pschychiatric History:: Reports:: Anxiety Family Hx:: Cancer, Stroke Review of Systems - Review of Systems Review of systems:: pertinent systems reviewed and negative unless documented below (14 point review of systems performed, pertinent positives and negatives as per HPI) Meds Home Medications Medication Instructions Recorded Confirmed Type Pantoprazole Sodium [Protonix 40mg 40 mg PO DAILY 09/17/21 10/05/21 History tablet] irbesartan 75 mg tablet 37.5 mg PO DAILY tab 10/03/21 10/05/21 History Metoprolol Succinate [Metoprolol 12.5 mg PO DAILY 10/05/21 10/05/21 History Succinate 25mg Tablet*] Rivaroxaban [Xarelto 15mg tablet] 15 mg PO BID 10/05/21 10/05/21 History Sennosides/Docusate Sodium [Senna 1 each PO HSP PRN 10/05/21 10/05/21 History Plus 8.6-50 mg Tablet] Allergies Allergy/AdvReac Type Severity Reaction Status Date / Time No Known Allergies Allergy Verified 10/05/21 10:34 Exam Vital signs and Labs for Last 24 Hours: Temp Pulse Resp BP Pulse Ox 98.6 F 76 16 99/58 L 100 10/05/21 14:40 10/05/21 14:40 10/05/21 14:40 10/05/21 14:40 10/05/21 14:40 Laboratory Results - last 24 hr 10/05/21 12:00: Blood Type A Positive, Antibody Screen Negative, Crossmatch (AHG) See Detail 10/05/21 13:05: SARS-CoV-2 (PCR) Not detected, Influenza A Untype (PCR) Not detected, Influenza Type B (PCR) Not detected I & O for Last 24 hours: Intake & Output 10/02/21 10/03/21 10/04/21 10/05/21 23:59 23:59 23:59 23:59 Intake Total 120 / 120 Balance 120 / 120 Weight 47.797 kg - Constitutional no acute distress, thin - *Routine HEENT Exam Head: Present: normocephalic Eye: Present: EOMI, PERRL ENT: Present: mucous membranes moist - *Routine Neck Exam Present: supple. Absent: lymphadenopathy - *Routine Respiratory Exam Present: CTA bilaterally - *Routine Cardiovascular Exam Present: RRR - *Routine Abdominal Exam Present: soft, normoactive bowel sounds. Absent: tender
--- NOTE | 2021-10-05 18:25 | PC.NURSE ---
Patient is non tele and on room air. Patient is up ad-dennise. Patient is alert and oriented times four. Patient has received one unit of blood, tolerated well. Second unit is currently transfusing. Bed in lowest position and phone and call light in place. Will continue to monitor.
[2021-10-05 20:53] LABS: Hematocrit 26.8 % (37.0-47.0)
[2021-10-05 20:54] LABS: Hemoglobin 8.5 g/dL (12.2-16.2)
[2021-10-06 04:00] VITALS: BP 121/71; PULSE 70; RESP 16; TEMP 37.8; O2SAT 99
[2021-10-06 05:07] VITALS: BMI 18.8
--- NOTE | 2021-10-06 06:40 | PC.NURSE ---
No acute events thus far this shift. Patient has voiced no complaints to this RN. Patient tolerated blood transfusion well with no issues noted.
[2021-10-06 06:51] LABS: Basophils % 0.4 % (0.1-2.0); Eosinophils # 0.1 K/mm3 (0.0-0.4); Eosinophils % 1.3 % (0.1-12.0); Hematocrit 28.2 % (37.0-47.0); Hemoglobin 8.7 g/dL (12.2-16.2); Lymphocytes # 1.4 K/mm3 (0.7-4.5); Mean Corpuscular HGB Conc 30.8 g/dL (31.8-35.4); Mean Corpuscular Volume 84.4 fl (81-99); Mean Platelet Volume 7.5 fl (7.4-10.4); Monocytes # 0.4 K/mm3 (0.1-1.0); Monocytes % 4.3 % (1.7-9.3); Neutrophils # 8.2 K/mm3 (1.8-7.8); Neutrophils % 79.9 % (37.0-80.0); Platelet Count 753 K/mm3 (142-424); Red Blood Count 3.34 M/mm3 (4.20-5.40); Red Cell Distribution Width 20.3 % (11.5-17.5); White Blood Count 10.3 K/mm3 (4.8-10.8)
[2021-10-06 06:59] LABS: Chloride 104 mmol/L (98-107); Potassium 4.3 mmoL/L (3.5-5.1); Sodium 136 mmol/L (136-145)
[2021-10-06 07:02] LABS: Calcium 8.7 mg/dl (8.4-10.2); Glucose 111 mg/dl (74-100); Magnesium 2.1 mg/dl (1.6-2.3)
[2021-10-06 07:15] LABS: Anion Gap 8.3 mEq/L (5-15); Carbon Dioxide 28 mmol/L (22.0-30.0)
[2021-10-06 07:48] LABS: Blood Urea Nitrogen 11 mg/dl (7-17); Creatinine Clearance Estimated 45 mL/min (50-200); Estimated Glomerular Filt Rate 85 ml/min (>60); GFR (African American) 103 ML/MIN (>60)
[2021-10-06 08:00] VITALS: BP 120/75; PULSE 75; RESP 16; TEMP 36.8; O2SAT 99
--- NOTE | 2021-10-06 09:02 | HMH.DCSUM ---
General - General Admission date:: 10/05/21 Discharge date: 10/06/21 HPI HPI: 61-year-old female with recent diagnosis of extensive tumor burden, CHF, and anemia. Was admitted recently due to flank pain from urinary obstruction. Symptoms resolved after stent placement and patient was discharged home. Followed up in the office today for close follow-up in regard to her cancer diagnosis and further management of her anemia. Complained of fatigue and having 1-2 blood-tinged stools daily. Still taking her Xarelto for bilateral pulmonary emboli diagnosed at last admission. Labs were obtained showing significant anemia with hemoglobin of 6.0. Given patient's fatigue, continued anticoagulation, and need for several units of red blood cells to be transfused, she was admitted for observation and monitoring during transfusion. Denies chest pain, shortness of breath, nausea or vomiting. Tolerating fair p.o. intake. Of note, recently saw cardiology for follow-up with improvement in her EF to 40 to 45%. 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 ER positive, [place] positive, HER-2/angela negative. Hospital Course Hospital Course: Patient was admitted, was typed and crossed and transfused for 2 units packed cells and did well with this. This morning she feels better. No changes on exam. Patient we discharged home. No medication changes. Follow-up has been arranged in our office and with vascular/CT surgery at [facility] for biopsy of her suspicious chest lesions. Because of her active treatment of pulmonary embolism, unfortunately we are not able to stop her Xarelto. We suspect that her anemia is from leakage of colon masses, but we are certainly in a rough spot as is she with the absolute need to treat the pulmonary embolism. We consider a [place] filter but because the problem is actually her hypercoagulable state and the fact that her lung mass predisposes her to [place] pulmonary emboli a [place] filter would not obviate the need for ongoing oral anticoagulation. Patient will be discharged today, she will need a CBC and BMP on October 09. We will follow this lab up in our office and she will keep her regular appointment. Objective Vital signs: Temp Pulse Resp BP Pulse Ox 98.3 F 75 16 120/75 99 10/06/21 08:00 10/06/21 08:00 10/06/21 08:00 10/06/21 08:00 10/06/21 08:00 no acute distress, thin - *Routine HEENT Exam Head: Present: normocephalic Eye: Present: EOMI, PERRL ENT: Present: mucous membranes moist - *Routine Neck Exam Present: supple - *Routine Respiratory Exam Present: rhonchi - *Routine Cardiovascular Exam Present: RRR - *Routine Abdominal Exam Present: soft, normoactive bowel sounds. Absent: tenderness - *Routine Extremities Exam Absent: cyanosis, clubbing, edema - *Routine Skin Exam Present: warm. Absent: rash - Detailed Eye Exam Eyelids: Bilateral normal inspection Results Labs on day of discharge: Labs from last 24 hours 10/06/21 10/06/21 10/05/21 06:15 06:15 20:32 WBC 10.3 RBC 3.34 L D Hgb 8.7 L 8.5 L D Hct 28.2 L 26.8 L MCV 84.4 MCH 26.0 L MCHC 30.8 L RDW 20.3 H Plt Count 753 H MPV 7.5 Neut % (Auto) 79.9 Lymph % (Auto) 14.0 [place] % (Auto) 4.3 Eos % (Auto) 1.3 Baso % (Auto) 0.4 Neut # (Auto) 8.2 H Lymph # (Auto) 1.4 [place] # (Auto) 0.4 Eos # (Auto) 0.1 Baso # (Auto) 0.0 Sodium 136 Potassium 4.3 Chloride 104 Carbon Dioxide 28 Anion Gap 8.3 BUN 11 D Creatinine 0.70 Estimated Creat Clear 45 Estimated GFR 85 Est GFR ( Amer) 103 Glucose 111 H D Calcium 8.7 Magnesium 2.1 SARS-CoV-2 (PCR) Influenza A Untype (PCR) Influenza Type B (PCR) Blood Type Antibody Screen Crossmatch (AHG) 10/05/21 10/05/21 13:05 12:00 WBC RBC Hgb Hct MCV MCH MCHC RDW Plt Count MP
== END 2021-10-06 10:34 | disposition home or self-care (01) | DRG 811 ==
PROVIDERS: Admitting Provider Internal Medicine Adolescent Medicine; PCP Internal Medicine Adolescent Medicine; Visit Provider Internal Medicine Adolescent Medicine
DX: D64.89 Other specified anemias (principal); I26.99 Other pulmonary embolism without acute cor pulmonale; C50.911 Malignant neoplasm of unspecified site of right female breast; Z17.1 Estrogen receptor negative status [ER-]; Z86.718 Personal history of other venous thrombosis and embolism; K21.9 Gastro-esophageal reflux disease without esophagitis; F41.9 Anxiety disorder, unspecified; Z87.891 Personal history of nicotine dependence; Z79.02 Long term (current) use of antithrombotics/antiplatelets; K63.89 Other specified diseases of intestine; R16.0 Hepatomegaly, not elsewhere classified
CPT/HCPCS: 36415; 80048; 83735; 85014; 85018; 85025; 86850; C9803; P9016; U0003; U0005

== ENCOUNTER → 2021-10-11 12:48 | Outpatient (CLI) | payer BC, SELFPAY ==
[2021-10-11 13:15] LABS: Basophils # 0.1 K/mm3 (0-0.2); Basophils % 0.8 % (0.1-2.0); Eosinophils # 0.1 K/mm3 (0.0-0.4); Eosinophils % 0.9 % (0.1-12.0); Hematocrit 25.1 % (37.0-47.0); Hemoglobin 7.6 g/dL (12.2-16.2); Lymphocytes # 1.6 K/mm3 (0.7-4.5); Lymphocytes % 18.5 % (10-50); Mean Corpuscular HGB Conc 30.4 g/dL (31.8-35.4); Mean Corpuscular Hemoglobin 25.7 pg (27.0-31.2); Mean Corpuscular Volume 84.7 fl (81-99); Mean Platelet Volume 7.6 fl (7.4-10.4); Monocytes # 0.4 K/mm3 (0.1-1.0); Neutrophils # 6.7 K/mm3 (1.8-7.8); Neutrophils % 75.8 % (37.0-80.0); Platelet Count 776 K/mm3 (142-424); Red Blood Count 2.96 M/mm3 (4.20-5.40); White Blood Count 8.9 K/mm3 (4.8-10.8)
[2021-10-11 15:02] LABS: Alanine Aminotransferase 13 U/L (12-78); Albumin Level 3.5 g/dl (3.5-5.0); Albumin/Globulin Ratio 1.2 (1.1-1.8); Alkaline Phosphatase 108 U/L (38-126); Anion Gap 12.7 mEq/L (5-15); Aspartate Amino Transferase 21 U/L (14-36); Bilirubin,Total 0.3 mg/dl (0.2-1.3); Blood Urea Nitrogen 15 mg/dl (7-17); Calcium 9.4 mg/dl (8.4-10.2); Carbon Dioxide 27 mmol/L (22.0-30.0); Chloride 100 mmol/L (98-107); Estimated Glomerular Filt Rate 85 ml/min (>60); GFR (African American) 103 ML/MIN (>60); Globulin 2.9 g/dL (1.3-3.2); Glucose 100 mg/dl (74-100); Potassium 4.7 mmoL/L (3.5-5.1); Sodium 135 mmol/L (136-145); Total Protein,Serum 6.4 g/dl (6.3-8.2)
== END ==
PROVIDERS: Visit Provider Internal Medicine Adolescent Medicine
DX: D50.0 Iron deficiency anemia secondary to blood loss (chronic) (principal)
CPT/HCPCS: 36415; 80053; 85025